=== PATIENT | female | born 1990 | race Caucasian/White ===

== ENCOUNTER 2024-09-10 07:41 | Outpatient (REF) | payer MEDICARE, MEDICAID, SELFPAY ==
[2024-09-10 08:10] LABS: MANUAL DIFF FLAG NO
[2024-09-10 08:36] LABS: Basophils Absolute Auto 0.1 X10*3/uL (0.0-0.2); Basophils Percent Auto 0.4 % (0-2); Eosinophils Absolute Auto 0.4 X10*3/uL (0.0-0.4); Eosinophils Percent Auto 3.3 % (0-4); Hematocrit 34.8 % (37.0-47.0); Hemoglobin 11.1 g/dl (12.0-16.0); Imm Gran Abs Auto 0.08 X10*3/uL (0.00-0.03); Imm Gran Pct Auto 0.7 % (0.0-0.4); Lymphocytes Absolute Auto 3.2 X10*3/uL (1.2-4.9); Lymphocytes Percent Auto 26.1 % (20-40); Mean Corpuscular HGB Conc 31.9 g/dl (31.0-35.0); Mean Corpuscular Hemoglobin 25.1 pg (27.0-33.0); Mean Corpuscular Volume 78.7 fL (80.0-98.0); Mean Platelet Volume 9.1 fL (9.4-12.3); Monocytes Absolute Auto 0.8 X10*3/uL (0.1-1.2); Monocytes Percent Auto 6.3 % (2-11); Neutrophils Absolute Auto 7.7 x10*3/uL (2.0-8.3); Neutrophils Percent Auto 63.2 % (45-73); Platelet Count 423 X10*3/uL (160-400); Red Blood Count 4.42 X10*6/uL (4.20-5.50); Red Cell Distribution Width 14.6 % (11.0-16.0); White Blood Count 12.2 X10*3/uL (4.8-10.8)
[2024-09-10 08:49] LABS: Estimated Average Glucose 117 mg/dL; Hemoglobin A1C 111.5725 umol/L; Hemoglobin A1c % 5.7 % (<6.0); Total Hemoglobin (HGBA1C) 2901.2537 umol/L
[2024-09-10 09:05] LABS: Anion Gap 10 (12-20); Blood Urea Nitrogen 11 mg/dL (9-16); Calcium 9.3 mg/dL (8.4-10.2); Carbon Dioxide 23 mmol/L (22-29); Chloride 109 mmol/L (96-108); Cholesterol 165 mg/dL (<200); Estimated Glomerular Filt Rate > 60; Glucose Random 94 mg/dL (60-115); HDL Cholesterol 47 mg/dL (>40); LDL Cholesterol Calculated 96 mg/dL (<100); Magnesium 1.9 mg/dL (1.6-2.6); Potassium 4.3 mmol/L (3.3-5.1); Sodium 138 mmol/L (135-145); Triglycerides 112 mg/dL (<150)
[2024-09-10 09:21] LABS: TSH reflex Free T4 1.12 uIU/mL (0.32-4.0); Vitamin D 25-OH Total 13.5 ng/mL (>30)
[2024-09-12 04:32] LABS: HBS Num1 0.38 mIU/mL (0-7.99); HBsAGNum1 0.42 S/CO (0.00-0.99); HIV AB/AG Nonreactive (Nonreactive); HIV Num 1 0.07 S/CO (0.00-0.99); Hepatitis B Core Antibody Nonreactive (Nonreactive); Hepatitis B Surface Antigen Negative (Negative); ~HepC Num1 0.99 S/CO (0.00-0.79); ~Hepatitis B Surface Antibody NONREACTIVE (Nonreactive)
[2024-09-12 05:14] LABS: ~HepC Num2 1.12; ~HepC Num3 1.03; ~Hepatitis C Antibody REACTIVE (Nonreactive)
[2024-09-15 13:13] LABS: HCV Log PCR <1.18 NOT DETECTED Log IU/mL (NOT DETECTED); HepC Viral Load <15 NOT DETECTED IU/mL (NOT DETECTED)
== END 2024-09-10 07:42 | disposition home or self-care (01) ==
LOC: HO.LAB 07:41
PROVIDERS: PCP Nurse Practitioner; Visit Provider Nurse Practitioner
DX: R20.2 Paresthesia of skin (principal); Z13.9 Encounter for screening, unspecified; E66.9 Obesity, unspecified; R79.89 Other specified abnormal findings of blood chemistry; Z11.59 Encounter for screening for other viral diseases
CPT/HCPCS: 36415; 80048; 80061; 82306; 83036; 83735; 84443; 85025; 86704; 86706; 86803; 87340; 87389; 87522

== ENCOUNTER 2024-09-28 18:03 | Outpatient (REF) | payer MEDICARE, MEDICAID, SELFPAY | END 2024-09-28 18:04 | disposition home or self-care (01) | LOC: HO.HHCLNP 18:03 | PROVIDERS: Visit Provider Nurse Practitioner | DX: L73.2 Hidradenitis suppurativa (principal) | CPT/HCPCS: 87070; 87077; 87147; 87186; 87205 ==

== ENCOUNTER 2025-02-15 16:03 | Outpatient (REF) | payer MEDICARE, MEDICAID, SELFPAY ==
--- OUTSIDE RECORDS SUMMARY | 2025-02-15 16:05 | XMS_ITS | Clinical Summary ---
Author Organization [facility] it Address [address] [place] [address] Care Team Providers Care Packing Line Operator Name Role Phone Unavailable Primary Care Provider Unavailabl e Social History Tobacco Use Types Packs/Day Years Used Date Smoking Tobacco: Never Assessed Sex and Gender Information Value Date Recorded Sex Assigned at Not on file Legal Sex Male 11:46 PM EST Gender Identity Not on file Sexual Orientation Not on file Plan of Treatment Health Maintenance Due Date Last Done Comments DTaP,Tdap,and Td Vaccines (1 - Tdap) 2009 Hepatitis B Vaccines (1 of 3 - 19+ 3-dose series) 2009 COVID-19 Vaccine (2023-2 5 season) 2024 Influenza Vaccine (Season Ended) 2025 HIB Vaccines Aged Out No longer eligi ble based on patient's age to complete this topic HPV Vaccines Aged Out No longer eligi ble based on patient's age to complete this topic Hepatitis A Vaccines Aged Out No long er eligible based on patient's age to complete this topic IPV Vaccines Aged Out No longer eligi ble based on patient's age to complete this topic MMR Vaccines Aged Out No longer eligi ble based on patient's age to complete this topic Meningococcal ACWY Vaccine Aged Out N o longer eligible based on patient's age to complete this topic Meningococcal B Vaccine Aged Out No l onger eligible based on patient's age to complete this topic Pneumococcal Vaccine: Pediat rics (0 to 5 Years) and At-Risk Patients (6 to 64 Years) Aged Out No longer eligible b ased on patient's age to complete this topic RSV Immunization Patients Un courtney 20 months Aged Out No longer eligible b ased on patient's age to complete this topic Varicella Vaccines Aged Out No longer eligible based on patient's age to complete this topic
== END 2025-02-15 16:04 | disposition home or self-care (01) ==
LOC: HO.HHCLNP 16:03
PROVIDERS: Visit Provider Nurse Practitioner
DX: T14.8XXA Other injury of unspecified body region, initial encounter (principal)
CPT/HCPCS: 36415; 87255

== ENCOUNTER 2025-08-10 19:10 | Emergency (ER) | payer MEDICARE, MEDICAID, SELFPAY ==
--- OUTSIDE RECORDS SUMMARY | 2025-08-04 23:59 | XMS_ITS | Continuity of Care Document ---
Author Organization [facility] As formerly [facility] Address [address] [place] [address] [address] [place] [address]- Care Team Providers Care Production Dispatcher Name Role Phone Not on Staff, PCP Primary Care Physician Unavail able [place] [facility] [place]/25 - 08/04/[address] [place] [address]- Attending Physician: Bar Seay MD Encounter Type: Pre Office Visit Allergies, Adverse Reactions, Alerts Substance Criticality Severity Reaction Reaction Severity Status Other Environmental Allergy cats- sneezing Active Immunizations Given and Recorded Vaccine Date Status Refusal Reason tetanus/diphtheria/pertussis, acel(Tdap) 07/11/24 Given influenza virus vaccine, inactivated 1 06/26/24 Gi surya influenza virus vaccine, inactivated 07/17/16 Give n 1Early/Late Reason: Early/Late Reason: Other : pt refused Medications docusate sodium 100 mg oral capsule 1 capsule, By Mouth, 2 times a day, PRN NEEDED FOR CONSTIPATION, # 60 capsule, 2 Refills, Maintenance, 06/02/25 12:33:00 PM EDT, [facility], 168, cm, 06/02/25 4:47:00 EDT, Height, 98.1, kg, 05/29/25 15:58:00 EDT, Dry Weight Start Date: 06/02/25 Status: Ordered Medication Dispense Status: Completed Quantity: 60.0 Unit: capsule Total Allowed Fills: 3 Fills Dispensed: 0 MiraLax oral powder for reconstitution = 17 Gm, By Mouth, Daily, # 238 Gm, 0 Refills, Maintenance, 06/25/25 5:53:00 PM EDT, REC Powder, [id number], Partial fill upon patient request if the prescription is for a schedule II opioid drug., 17 Gm By Mouth Daily, 165, cm, 06/25/25 13:36:00 EDT, Height, 96.3, kg, 06/25/25 13:36:00 EDT, Dry Weight Start Date: 06/25/25 Status: Ordered Medication Dispense Status: Completed Quantity: 238.0 Unit: g Total Allowed Fills: 1 Fills Dispensed: 0 Pulmicort Flexhaler 180 mcg 1 inhalation = 180 mcg, Inhalation, Daily, 0 Refills, Maintenance, 05/29/25 6:09:00 AM EDT, Partial fill upon patient request if the prescription is for a schedule II opioid drug. Start Date: 05/29/25 Status: Ordered Medication Dispense Status: Completed Total Allowed Fills: 1 Fills Dispensed: 0 Ventolin HFA 108 mcg/inh inhalation aerosol with adapter 0 Refills, Maintenance, 05/19/25 1:43:00 PM EDT, Partial fill upon patient request if the prescription is for a schedule II opioid drug. Start Date: 05/19/25 Status: Ordered Medication Dispense Status: Completed Total Allowed Fills: 1 Fills Dispensed: 0 Problem List Condition Confirmation Course Effective Dates Status Health St [facility] Informant Hidradenitis suppurativa Confirmed Active Obese class II Confirmed Active Patient Care team information Care Team Personnel Name: Jayashree Solo [facility] RN Member Role: Primary Care Nurse Name: Sherley Gomez RN [facility] RN Member Role: Primary Care Nurse Name: Saadia Johnston RN Position[facility] RN Member Role: Primary Care Nurse Name: Doris Emery RN Position: S RN Member Role: Primary Care Nurse Name: Chano Zheng RN Position: [facility] RN Member Role: Primary Care Nurse Name: Sherita Leo RN Position[facility] RN Member Role: Primary Care Nurse Name: Vivienne Cerna RN Position: S RN Member Role: Primary Care Nurse Name: Philip Herman RN Position: [facility] RN Member Role: Primary Care Nurse Name: Sina Medina RN Position: [facility] SN RN Member Role: Primary Care Nurse Name: Not on Staff, PCP Position: [facility] Physician (General Medicine) Member Role: PCP Name: Alexandre Kelsey NP Position: [facility] - Associate Professional Provider Member Role: Primary Care Nurse Name: Leyla Law RN Position[facility] RN Member Role: Primary Care Nurse Name: Mary Bryant Position: [facility] Outreach Member Role: Lifetime Consulting Physician Name: Christy Vicente RN Position[facility] RN Member Role: Primary Care Nurse Name: Nena Morejon RN Position[facility] RN Member Role: Primary Care Nurse Name: Day Ramirez RN Position: [facility] RN Member Role: Primary Care Nurse Name: Naomie Castle RN Position[facility] RN Member Role: Primary Care Nurse Name: Mike Álvarez RN Position[facility] RN Member Role: Primary Care Nurse Care Team Related Persons Name: RACHELLE MART Name: CECY ELIU Name: JUAN FRANCISCO TAN Name: LYNDA TAN Insurance Providers Guarantor name: MAKENZIE SIDHU Health Plan Information #: 1 Payer: MEDICARE B Payer Identifier: Member Number: [id number] Group Number: Subscriber Identifier: [id number] Relationship to Subscriber: self Coverage Type: NA Coverage Verification Date: Telecom: Address: Health Plan Information #: 2 [facility] [employer] Payer Identifier: Member Number: [id number] Group Number: Subscriber Identifier: [id number] Relationship to Subscriber: self Coverage Type: MEDICAID Coverage Verification Date: Telecom: Address:
--- OUTSIDE RECORDS SUMMARY | 2025-08-04 23:59 | XMS_ITS | Continuity of Care Document ---
Author Organization [facility] Address [address] [place] [address] [address] [place] [address]- Care Team Providers Care Furs Salesperson Name Role Phone Not on Staff, PCP Primary Care Physician Unavail able Encounter [facility] Date(s): 07/05/25 - 08/04/[address] [place] [address]- Encounter Type: Triage Allergies, Adverse Reactions, Alerts Substance Criticality Severity [...] 2 Refills, Maintenance, 06/02/25 12:33:00 PM EDT, [facility], 168, cm, 06/02/25 4:47:00 EDT, [...] Team Personnel Name: Jayashree Solo RN Position: [facility] RN Member Role: Primary Care Nurse Name: Sherley Gomez RN Position: [facility] RN Member Role: Primary Care Nurse Name: Saadia Johnston RN Position: [facility] RN Member Role: Primary Care Nurse Name: Doris Emery RN Position: [facility] RN Member Role: Primary Care Nurse Name: Chano Zheng RN Position: S RN Member Role: Primary Care Nurse Name: Sherita Leo RN Position: [facility] RN Member Role: Primary Care Nurse Name: Vivienne Cerna RN Position: S RN Member Role: Primary Care Nurse Name: Philip Herman RN Position: S RN Member Role: Primary Care Nurse Name: Sina Medina RN Position: [facility] RN Member Role: Primary Care Nurse Name: Not on Staff, PCP Position: [facility] Physician (General Medicine) Member Role: PCP Name: Alexandre Kelsey NP Position: [facility] - Associate Professional Provider Member Role: Primary Care Nurse Name: Leyla Law RN Position: [facility] RN Member Role: Primary Care Nurse Name: Mary Bryant Position: [facility] Outreach Member Role: Lifetime Consulting Physician Name: Christy Vicente RN Position: [facility] RN Member Role: Primary Care Nurse Name: Nena oMrejon RN Position: [facility] RN Member Role: Primary Care Nurse Name: Day Ramirez RN Position: [facility] RN Member Role: Primary Care Nurse Name: Naomie Castle RN Position: [facility] RN Member Role: Primary Care Nurse Name: Mike Álvarez RN Position: [facility] RN Member Role: Primary Care Nurse Care Team Related Persons Name: BARRON RACHELLE Name: ELIU SAM Name: JUAN FRANCISCO TAN Name: LYNDA TAN Insurance Providers Guarantor name: [facility] Plan Information #: 1 Payer: MEDICARE B Payer Identifier: AMBROSE Member Number: [id number] Group Number: Subscriber Identifier: AMBROSE Relationship to Subscriber: self Coverage Type: NA Coverage Verification Date: Telecom: NA Address: [facility] Information #: 2 P[facility]: [facility] [employer] Payer Identifier: AMBROSE Member Number: [id number] Group Number: AMBROSE Subscriber Identifier: AMBROSE Relationship to Subscriber: self Coverage Type: MEDICAID Coverage Verification Date: Telecom: Address:
--- NOTE | ~2025-08-10 | CT_ITS ---
CLINICAL HISTORY: stoma swelling and pain CT abdomen and pelvis with contrast Comparison: None provided Findings: No consolidation or effusion. Hepatic steatosis. The spleen, left and right kidney, pancreas and adrenal glands are within normal limits. Left upper quadrant colostomy. The appendix is within normal limits. Diverticulosis. No acute fracture. IMPRESSION: 1. Hepatic steatosis. 2. Left upper quadrant colostomy with proximal and distal stoma present. 3. Diverticulosis. 4. No acute intraabdominal or pelvic pathology. This document has been electronically signed by: Alexandro Newberry MD on 08/10/2025 23:33:27
--- NOTE | 2025-08-10 19:12 | ED_ITS ---
HPI - General Adult General Chief complaint: Abdominal Pain Stated complaint: General Medical Time Seen by Provider: 08/10/25 20:54 Source: patient and old records reviewed Mode of arrival: ambulatory Limitations: no limitations History of Present Illness ED Provider: JUAN DANIEL IQBAL narrative: 34-year-old patient who uses male pronouns, and prefers the name Tony. 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 He follows at [facility]. He comes in with a complaint of two days of stomal swelling and pain. He notes that the stoma is still pink, patent, productive. He still has brown stool and has gas in the colostomy bag. He has no nausea vomiting, fevers, pain anywhere else. He states he denies any trauma to this area, but notes it hurts when he sneezes. He has no prior abdominal surgery other than the colostomy. He is not on any medications for HS. MD complaint: Stomal pain Onset (ago): day(s) ( 2) Location: abdomen Radiation: non-radiation Severity: moderate Quality: aching Pain Consistency: intermittent Relieving factors: none Exacerbating factors: movement ( sneezing) Associated symptoms: denies other symptoms Treatments prior to arrival: none Related Data Allergies Allergy/AdvReac Type Severity Reaction Status Date / Time No Known Allergies Allergy Verified 08/10/25 19:15 Review of Systems 2 Review of Systems: Constitutional : No Weight loss, No Fever, No Chills ENT/Mouth : No sore throat, No Rhinorrhea Eyes: No Swelling, No Redness Cardiovascular : No Chest Pain, No SOB, No Edema Respiratory : No Cough, No Sputum, No Wheezing Gastrointestinal : no Nausea, no Vomiting, no Diarrhea, positive abdominal Pain, No Hematochezia, No Melena Genitourinary : No Dysuria, No Urinary Frequency, No Hematuria, No Urgency Musculoskeletal : No joint pain, No Myalgias, No Joint Swelling Skin : No Skin Lesions, No rash Neuro : No Weakness, No Numbness, No Dizziness, No Headache All other systems reviewed and are negative. [facility] Past Medical History Attestation statement: The following information was validated with the patient. Medical History (Updated 08/11/25 @ 00:14 by Jenna Cedeño DO) Suppurative hidradenitis Surgical History (Updated 08/10/25 @ 21:14 by Jenna Cedeño DO) History of colostomy Social History Social History (Updated 08/10/25 @ 21:14 by Jenna Cedeño DO) Patient Tobacco Use Status: Never used Tobacco Advance Directives: No Advance Directives Information Provided: No Physical Exam ED Vital Signs: Vital Signs - 24 hr 08/10/25 19:13 Temperature 98.2 F Pulse Rate 60 Respiratory Rate 16 Blood Pressure 128/63 Pulse Oximetry 98 Oxygen Delivery Method Room Air BMI result Body Mass Index 36.6 Appearance: Alert. Oriented X3. No acute distress. Eyes: Pupils equal, round and reactive to light. ENT: Pharynx normal. Neck: Normal inspection. Neck supple. CVS: Normal heart rate and rhythm. Pulses normal. Respiratory: No respiratory distress. Breath sounds normal. Abdomen: Soft and stoma is pink, patent, productive, the colostomy bag has gas and light brown stool in it. He does have tenderness to palpation along the left lateral border of the stoma and there is slight firmness, but no redness, no fluctuance, no crepitus. Skin: Skin warm and dry. Normal skin color. Normal skin turgor. Extremities: No lower extremity edema. No calf ttp Neuro: Oriented X 3. No motor deficit. No sensory deficit. CN2-12 intact Course Course Course Narrative: This is a rapid medical exam performed by João Lacey NP: Additional HPI, ROS, PE not included below will be deferred to primary provider. Patient is a 34y/o with colostomy presenting with complaint of swelling around stoma, numbness around umbilicus. Symptoms began around 2 weeks ago, saw ostomy nurse at [facility] on Thursday who thought it looked ok. Also complains of epigastric pain. Having gas and stool from ostomy. Plan: labs Reevaluation(s) Reevaluation #1: 11:52 PM 08/10/2025 (JUAN DANIEL HERNANDEZ): CT scan does not mention concern for parastomal hernia although I do not see any obstruction I am asking Radiology to re-evaluate imaging. Medications Administered Discontinued Medications Generic Name Dose Route Start Last Admin Trade Name Freq PRN Reason Stop Dose Admin Iohexol 85 ml 08/10/25 22:30 08/10/25 22:31 Iohexol 350 Mg/Ml 100 Ml Infus..Btl IV 08/10/25 22:31 85 ml ONCE ONE Administration Medical Decision Making Medical Decision Making [facility] Narrative: 34-year-old patient who uses male pronouns, and prefers the name Tony. He has a past medical history of hidradenitis suppurativa, rectal sparing colostomy due to site of HS now here with complaint of parastomal swelling and pain. He denies any recent trauma. He has a productive and normal-appearing stool in the colostomy bag. He has no fevers, nausea, vomiting. At this time given his history and new swelling at the site that is more a firmness to me with no protrusion of the stoma, I am going to obtain basic labs and CT scan for hernia or other cause of swelling. Differential Diagnosis Differential Diagnoses: The differential diagnosis associated with the presentation includes Stomal hernia, seroma, hem Admission/Observation Consideration of admission/observation: Escalation of care including admission/observation considered he has no signs of obstruction at this time I am going to refer him to his surgeon at [facility] Lab Data [facility] Lab Attestation statement: I reviewed the patient's lab results. 08/10/25 20:11 08/10/25 20:11 Labs: Lab Results 08/10/25 Range/Units 20:11 WBC 13.2 H (4.8-10.8) X10*3/uL RBC 4.22 (4.20-5.50) X10*6/uL Hgb 11.2 L (12.0-16.0) g/dl Hct 34.4 L (37.0-47.0) % MCV 81.5 (80.0-98.0) fL MCH 26.5 L (27.0-33.0) pg MCHC 32.6 (31.0-35.0) g/dl RDW 13.6 (11.0-16.0) % Plt Count 343 (160-400) X10*3/uL MPV 8.9 L (9.4-12.3) fL Immature Gran % (Auto) 0.4 (0.0-0.4) % Neut % (Auto) 65.2 (45-73) % Lymph % (Auto) 23.2 (20-40) % [place] % (Auto) 6.9 (2-11) % Eos % (Auto) 4.0 (0-4) % Baso % (Auto) 0.3 (0-2) % Lymph # (Auto) 3.1 (1.2-4.9) X10*3/uL [place] # (Auto) 0.9 (0.1-1.2) X10*3/uL Eos # (Auto) 0.5 H (0.0-0.4) X10*3/uL Baso # (Auto) 0.0 (0.0-0.2) X10*3/uL Abs Immat Gran (auto) 0.05 H (0.00-0.03) X10*3/uL Absolute Neuts (auto) 8.6 H (2.0-8.3) x10*3/uL Absolute Nucleated RBC 0.000 (0.0-0.012) X10*3/uL Nucleated RBC % (auto) 0.0 (0.0-0.2) /100WBC ESR 49 H (0-20) MM/HR Sodium 140 (135-145) mmol/L Potassium 3.8 (3.3-5.1) mmol/L Chloride 108 (96-108) mmol/L Carbon Dioxide 25 (22-29) mmol/L Anion Gap 11 L (12-20) BUN 13 (9-16) mg/dL Creatinine 0.97 (0.5-1.4) mg/dL Estim Creat Clear Calc 95.5 Estimated GFR > 60 Random Glucose 85 (60-115) mg/dL Calcium 9.2 (8.4-10.2) mg/dL Total Bilirubin 0.5 (0.0-1.0) mg/dL AST 22 (5-31) U/L ALT 24 (0-31) U/L Alkaline Phosphatase 94 (39-117) U/L C-Reactive Protein 1.59 H (< or = 0.50) mg/dL Total Protein 8.6 H (6.5-8.0) g/dL Albumin 4.2 (3.5-5.0) g/dL Beta HCG, Quant < 2 mIU/mL Independent Interpretation I performed an independent interpretation of an: CT Scan ( no acute surgical pathology) Radiology Impression Discussion of test interpretation with radiology: I have reviewed the radiologist's reading. External Record Review External record reviewed: Outpatient record Discharge Plan Discharge Clinical Impression: Abdominal pain Qualifiers: Abdominal location: left lower quadrant Qualified Code(s): R10.32 - Left lower quadrant pain Patient Disposition: Home, Self-Care Instructions: Abdominal Pain (ED) Additional Instructions: your labs are reassuring Your CT scan did not show any obstruction, incarceration, strangulation of the bowel Since your colostomy is working I would follow up with your surgeon today and discuss your findings Please return if your colostomy stops working, you have severe pain, vomiting, fever over 100.4, or any other concerns IMPRESSION: 1. Left lower quadrant colostomy with proximal and distal stoma without CT evidence of incarceration, strangulation or loculated fluid collection identified. 2. Hepatic steatosis. 3. Diverticulosis. 4. No acute intraabdominal or pelvic pathology. Stand Alone Forms: Work/School Release Print Language: Moldovan
[2025-08-10 19:13] VITALS: BP 128/63; PULSE 60; RESP 16; TEMP 36.8; O2SAT 98; BMI 36.6
[2025-08-10 20:15] LABS: MANUAL DIFF FLAG NO
[2025-08-10 20:23] LABS: Hematocrit 34.4 % (37.0-47.0); Hemoglobin 11.2 g/dl (12.0-16.0); Imm Gran Abs Auto 0.05 X10*3/uL (0.00-0.03); Imm Gran Pct Auto 0.4 % (0.0-0.4); Lymphocytes Absolute Auto 3.1 X10*3/uL (1.2-4.9); Mean Corpuscular HGB Conc 32.6 g/dl (31.0-35.0); Mean Corpuscular Hemoglobin 26.5 pg (27.0-33.0); Mean Corpuscular Volume 81.5 fL (80.0-98.0); NRBC Abs Auto 0.000 X10*3/uL (0.0-0.012); NRBC Pct Auto 0.0 /100WBC (0.0-0.2); Platelet Count 343 X10*3/uL (160-400); Red Blood Count 4.22 X10*6/uL (4.20-5.50); White Blood Count 13.2 X10*3/uL (4.8-10.8)
[2025-08-10 20:36] LABS: Alanine Aminotransferase 24 U/L (0-31); Albumin Level 4.2 g/dL (3.5-5.0); Alkaline Phosphatase 94 U/L (39-117); Anion Gap 11 (12-20); Aspartate Amino Transferase 22 U/L (5-31); Blood Urea Nitrogen 13 mg/dL (9-16); Calcium 9.2 mg/dL (8.4-10.2); Carbon Dioxide 25 mmol/L (22-29); Chloride 108 mmol/L (96-108); Creatinine Clr Calc Pharmacy 95.5; Estimated Glomerular Filt Rate > 60; Potassium 3.8 mmol/L (3.3-5.1); Sodium 140 mmol/L (135-145); Total Protein 8.6 g/dL (6.5-8.0)
--- OUTSIDE RECORDS SUMMARY | 2025-08-10 21:05 | XMS_ITS | Encounter Summary ---
Author Organization [employer] Address [address] [place] [address] Care Team Providers Care Shipping Assistant Name Role Phone Maida Scott NP Primary Care Provider [phone] Reason for Visit * Reason Onset Date Comments Hospital Follow-up 06/06/2025 Encounter Details Date Type Department Care Team ([facility] Contact Info) Description 06/06/2025 Telephone [facility] [address] [place] [address] Maida Scott NP [address] [place] [address] Hospital Follow-up Social History Tobacco Use Types Packs/Day Years Used Date Smoking Tobacco: Former Cigarettes Passive Smoke Exposure: Past Smokeless Tobacco: Former Alcohol Use Standard Drinks/Week Comments Never 0 (1 standard drink = 0.6 oz pur e alcohol) Depression Answer Date Recorded Patient Health Questionnaire-9 Score 4 08/26/2024 Patient Health Questionnaire-9 Score 4 08/26/2024 Last PHQ-9: Questionnaire Data Not on file 1 10/27/2023 Housing Stability Answer Date Recorded What is your housing situation today? I have housing today, but I am worried about losing housing in the future 06/06/[address] you li ve. Do you have problems with any of the following? Mold 06/06/2025 Food Insecurity Answer Date Recorded Within the past 12 months, y ou worried that your food would run out before you got money to buy more: Never True 08/17/2024 Within the past 12 months,th e food you bought just didn't last and you didn't have enough money to get more: Never True 12/2023 Transportation Answer Date Recorded In the past 12 months, has l ack of transportation kept you from medical appts, meetings, work or from getting things needed for daily living? No 08/17/2024 Utilities Answer Date Recorded In the past 12 months, has t he electric, gas, oil or water company threatened to shut off services in your home? Yes 06/06/2025 Depression Answer Date Recorded Patient Health Questionnaire-2 Score 1 08/26/2024 Internet Access Answer Date Recorded Internet Access Q1 No 06/06/2025 Internet Access Q2 I cannot afford it 06/06/2025 Comments Unknown Sex and Gender Information Value Date Recorded Sex Assigned at Female 04/27/2024 10:55 AM EDT Legal Sex Female 10:54 AM EDT Gender Identity Transgender Male 08/26/2024 10:4 1 AM EST Sexual Orientation Straight 08/26/2024 10 :41 AM EST documented as of this encounter Miscellaneous Notes * Telephone Encounter - Lizzie Tariq - 06/06/2025 11:16 AM EDT Tc from pt retuning call from encounter 06/05 Contact pt at [phone] documented in this encounter Plan of Treatment Upcoming Encounters Date Type Department Care Team (Late st Contact Info) Description 08/21/2025 1:30 PM EST Office Visit [facility] [address] [place] [address] Vicki, Myla [address] [place] [address] documented as of this encounter Visit Diagnoses Not on filedocumented in this encounter Additional Health Concerns Assessment Noted Time PHQ-9 Depression Total Score: 4 08/26/20 10:41 AM EST documented as of this encounter Care Teams Shipping Assistant Relationship Specialty Start Date End Date Maida Scott NP [address] [place] [address] PCP - General Family Medicine 08/26/24 documented as of this encounter
--- OUTSIDE RECORDS SUMMARY | 2025-08-10 21:05 | XMS_ITS | Encounter Summary ---
Author Organization [employer] Address [address] [place] [address] Care Team Providers Care Head Chef Name Role Phone Maida Scott NP Primary Care Provider [phone] Reason for Visit * Reason Onset Date Comments Nurse Triage 09/27/2024 Encounter Details Date Type Department Care Team ([facility] st Contact Info) Description 09/27/2024 Telephone [facility] MEDICINE [address] [place], [place] [phone] Maida Scott NP [address] [place] [address] Nurse Triage Social History Tobacco Use Types Packs/Day Years Used Date Smoking Tobacco: Never Smokeless Tobacco: Never Alcohol Use Standard Drinks/Week Comments Never 0 (1 standard drink = 0.6 oz pur e alcohol) Depression Answer Date Recorded Patient Health Questionnaire-9 Score 4 08/26/2024 Patient Health Questionnaire-9 Score 4 08/26/2024 Last PHQ-9: Questionnaire Data Not on file 1 10/27/2023 Housing Stability Answer Date Recorded What is your housing situation today? I have [facility] 08/17/[address] you li ve. Do you have problems with any of the following? Mold;Pests such as bugs, ants, or mice 08/17/2024 Food Insecurity Answer Date Recorded Within the [...] to shut off services in your home? No 08/17/2024 Depression Answer Date Recorded Patient Health Questionnaire-2 Score 1 08/26/2024 Internet Access Answer Date Recorded Internet Access Q1 Yes 08/17/2024 Internet Access Q2 Not on file 08/17/2024 Comments Unknown Sex and Gender Information Value Date Recorded Sex Assigned at Female 04/27/2024 10:55 AM EDT Legal Sex Female 10:54 AM EDT Gender Identity Transgender Male 08/26/2024 10:4 1 AM EST Sexual Orientation Straight 08/26/2024 10 :41 AM EST documented as of this encounter Miscellaneous Notes * Telephone Encounter - Maida Scott NP - 09/27/2024 1:31 PM EST Thank you * Telephone Encounter - Sidra Pinzon RN - 09/27/2024 12:18 PM EST Called pt. He states the he has a break out of Hidradenitis located all over body mostly armpits and groin area. Areas are red and draining pus. Pus is thick and yellowish green. Pt states I am verysensitive and scared about PCP looking at my private area . I don't want her to be grossed out by what she see's and I'm very sensitive about the way people say things . No fever. Pt. Requesting antibiotic to be called in but I stated that pt. Needs to come in so that PCP can initially see what's going on so that she will have an idea in the future of condition. I gave pt. Appt. For 09/28/24 with PCP and stated Your PCP is very kind and compassionate and You will need to show initial wounds so that maybe in the future you can just call in and discuss with PCP or do a televisit to get your antibiotics in the future. Pt. Agrees with plan hesitantly. Will send thi to PCP as a FYI Protocol Used: Boil (Skin Abscess) (Adult) Protocol-Based Disposition: Go to Office or Video Visit Now-appt. With PCP 09/28/24 at 930am Positive Triage Questions: * Severe pain (e.g., excruciating) * Boil > 1/2 inch across (> 12 mm; larger than a marble) and center is soft or pus colored * All higher-acuity triage questions were negative Care Advice Discussed: * Reassurance and Education - Boil * Treatment for a Boil - Moist Heat * Treatment for a Boil - Antibiotic Ointment * Draining Pus Is Contagious * Preventing Spread to Yourself and Others * Pain Medicines * Telephone Encounter - Venkatesh Lombardi - 09/27/2024 11:55 AM EST Symptom: Skin Infection - Caller Reports Outcome: Schedule an urgent appointment (within 4 hours) or talk to a nurse or provider soon Reason: Fast-spreading redness The caller accepted this outcome. Contact pt at [phone] documented in this encounter Plan of Treatment Upcoming Encounters Date Type Department Care Team (Late st Contact Info) Description 08/21/2025 1:30 PM EST Office Visit [facility] ADULT DENTAL [address] [place] [address] Vicki, Myla [address] [place] [address] documented as of this encounter Visit Diagnoses Not on filedocumented in this encounter Additional Health Concerns Assessment Noted Time PHQ-9 Depression Total Score: 4 08/26/20 24 10:41 AM EST documented as of this encounter Care Teams Head Chef Relationship Specialty Start Date End Date Maida Scott NP [address] [place] [address] PCP - General Family Medicine 08/26/24 documented as of this encounter
--- OUTSIDE RECORDS SUMMARY | 2025-08-10 21:05 | XMS_ITS | Encounter Summary ---
Author Organization [employer] Address [address] [place] [address] Care Team Providers Care Fruit Buying Grader Name Role Phone Maida Scott NP Primary Care Provider Reason for Visit * Reason Onset Date Comments Nurse Triage 02/15/2025 Encounter Details Date Type Department Care Team ([facility] Contact Info) Description 02/15/2025 Telephone [facility] MEDICINE [address] [place], [place] [phone] Maida Scott NP [address] [place] [address] Nurse Triage Social History Tobacco Use Types [...] encounter Miscellaneous Notes * Telephone Encounter - Isabel Apple RN - 02/15/2025 9:19 AM EDT Triage call with Pt reporting bubbles developing on outer labia area that were previously on leftbuttocks. Pt denies itchiness but, area is painful to touch. Pt reports these bubbles pop with clear drainage. Pt reports this started about a month ago. Pt is concerned that this is an infectiousdisease . ASK apt today with PCP at 1115am , Pt agrees with disposition and home care is advised, keeping area clean, if drainage occurs clean with warm soap and water, rinse and apply antibiotic ointment then try to keep area drainage contained. Hand washing is important. Pt agrees with home care . Insurance is verified as active prior to booking. Protocol Used: Rash or Redness - Localized (Adult) Protocol-Based Disposition: See in Office or Video Visit Today Video visit not offered Positive Triage Question: * Patient wants to be seen * All higher-acuity triage questions were negative Care Advice Discussed: * Reassurance and Education - Mild Localized Rash * Wash the Area * Don't Scratch * Contagiousness * Reasons To Call Back - Rash spreads or becomes worse - Rash lasts longer than 1 week - You become worse * Telephone Encounter - Vanita Meng - 02/15/2025 8:53 AM EDT Symptom: Infectious Disease Exposure Outcome: Schedule a same-day appointment or talk to a nurse or provider today Reason: Caller denied all higher acuity questions The caller accepted this outcome. [phone] documented in this encounter Plan of Treatment Upcoming Encounters Date Type Department Care Team (Late st Contact Info) Description 08/21/2025 1:30 PM EST Office Visit [facility] ADULT DENTAL [address] [place] [address] Vicki, Myla [address] [place] [address] documented as of this encounter Visit Diagnoses Not on filedocumented in this encounter Additional Health Concerns Assessment Noted Time PHQ-9 Depression Total Score: 4 08/26/20 24 10:41 AM EST documented as of this encounter Care Teams Fruit Buying Grader Relationship Specialty Start Date End Date Maida Scott NP [address] [place] [address] PCP - General Family Medicine 08/26/24 documented as of this encounter
--- OUTSIDE RECORDS SUMMARY | 2025-08-10 21:05 | XMS_ITS | Encounter Summary ---
Author Organization [employer] Address [address] [place] [address] Care Team Providers Care Spinning Frame Cleaner Name Role Phone Tyler Maida NGUYEN Primary Care Provider [phone] Reason for Visit * Reason Comments Med Change Request Encounter Details Date Type Department Care Team ([facility] st Contact Info) Description 03/21/2025 Refill [facility] [address] [place], [place] [phone] Aniya Lincoln NP [address] [place] [address] Moderate persistent asthma with acute exacerbation Social History Tobacco Use Types Packs/Day Years [...] AM EST documented as of this encounter Plan of Treatment Upcoming Encounters Date Type Department Care Team (Late st Contact Info) Description 08/21/2025 1:30 PM EST Office Visit [facility] ADULT DENTAL [address] [place] [address] Myla Cohen [address] [place] [address] documented as of this encounter Visit Diagnoses Diagnosis Moderate persistent asthma with acute exacerbation documented in this encounter Additional Health Concerns Assessment Noted Time PHQ-9 Depression Total Score: 4 08/26/20 10:41 AM EST documented as of this encounter Care Teams Spinning Frame Cleaner Relationship Specialty Start Date End Date Maida Scott NP [address] [place] [address] PCP - General Family Medicine 08/26/24 documented as of this encounter
--- OUTSIDE RECORDS SUMMARY | 2025-08-10 21:05 | XMS_ITS | Clinical Summary ---
Author Organization [facility] Address [address] [place] [phone] Phone Care Team Providers Care Elderly Sitter Name Role Phone Moises Wiseman MD Unavailable [phone] Unknown, Unknown MD Primary Care Provider Unavai lable Allergies No known active allergies Medications doxycycline hyclate (DORYX) 100 MG tablet Take 1 tablet by mouth 2 (two) times a day. One bid. stop if . be careful in sun. 5 Active ibuprofen (ADVIL,MOTRIN) 800 MG tablet Take 1 tablet by mouth 3 (three) times a day. PRN. 5 Active adalimumab (HUMIRA) 40 mg/0.8 mL PnKt Inject 0.8 mL (40 mg total) under the skin every 7 days. 4 pen 2 6 Active chlorproMAZINE (THORAZINE) 100 MG tablet Take 1 tablet by mouth nightly. Active traZODone (DESYREL) 50 MG tablet Take 3 tablets by mouth nightly as needed. DOSE INCREASE Active Medication-Valente e Text HydrOXYzine HCl 50 MG/ML Tablet, Si-2 tablets Orally every 6 hrs PRN Active QUEtiapine (SEROQUEL) 25 MG tablet Take 1-2 tablets by mouth as needed. Active citalopram (CELEXA) 20 MG tablet Take 1 tablet by mouth daily. Active busPIRone (BUSPAR) 15 MG tablet Take 1 tablet by mouth 2 (two) times a day. 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 Not on colton e 01/09/2023 Are you concerned about learning? Not on file 01/09/2023 No 01/09/2023 No 01/09/2023 Digital Access Answer Date Recorded No 02/09/2023 No 02/09/2023 No 02/09/2023 Reliable internet access at home? Not on file 02/09/2023 Device with a working camera? Not on file Comments Unknown Sex and Gender Information Value Date Recorded Sex Assigned at Not on file Legal Sex Female 8:52 AM EST Gender Identity Not on file Sexual Orientation Not on file Last Filed Vital Signs Vital Sign Reading Time Taken Comments Blood Pressure 102/64 02/02/2017 2:18 AM EDT Pulse 66 02/02/2017 2:18 AM EDT Temperature 36.9 C (98.4 F) 02/02/2017 2:18 AM EDT Respiratory Rate - - Oxygen Saturation - - Inhaled Oxygen Concentration - - Weight 94.6 kg (208 lb 9.6 oz) 02/02/2017 2:18 A M EDT Height 167 cm (5' 5.75 ) 02/02/2017 2:18 AM EDT Body Mass Index 33.93 02/02/2017 2:18 AM EDT Plan of Treatment Health Maintenance Due Date Last Done Comments Adult Td,Tdap Booster 1990 DEPRESSION SCREENING 2002 HIV ONE-TIME SCREENING (18-6 5 YEARS) 2008 PNEUMOCOCCAL VACCINES (0-49 years) (1 of 2 - PCV) 2009 SMOKING STATUS SCREENING (On ce After 26 Yrs) 2016 PAP SMEAR 10/08/2019 10/08/2016 COVID-19 VACCINE (3 - Modern a risk series) 12/05/2020 2020, 10/10/2020 INFLUENZA VACCINE (#1) 2025 HEPATITIS C SCREENING Completed 08/02/2015 HEPATITIS A VACCINES Aged Out No long er eligible based on patient's age to complete this topic HIB VACCINES Aged Out No longer eligi ble based on patient's age to complete this topic MENINGOCOCCAL VACCINES (ACWY) Aged Out No longer eligible based on patient's age to complete this topic MENINGOCOCCAL VACCINES (B) Aged Out N o longer eligible based on patient's age to complete this topic Medical Devices Not on file Procedures Procedure Name Priority Date/Time Associated Diagnosis Comments HEPATITIS C VIRAL LOAD, PCR Routine 08/02/2015 10:20 AM EST from Last 3 Months or Most Recently Relevant to Health Maintenance Results * HCV viral load (PCR) (08/02/2015 10:20 AM EST) HCV RNA PCR see comment IU/mL [facility] Comment: Not Detected (NOTE)Assay Range: 15-100,000,000 IU/ml In rare instances, there might be a 1.0 - 1.5 log increase measured viral load observed in individuals with genotype 3a and 4. Please refer any questions to the [facility] at extension [phone]. This is a quantitative assay utilizing real-time PCR technology. Results of this test may be clinically useful in monitoring a patient's clinical course or response to antiviral therapy but should not be used to make the diagnosis of HCV infection. A test result of less than the lower limit of quantification (LLoQ)(<15 IU/mL) should be interpreted as HCV RNA not quantifiable but does not exclude the diagnosis of HCV infection. 08/02/2015 10:2 0 AM EST 08/02/2015 3:38 PM EST Comment:BLOOD us Maricarmen Tapia MD LAB BLOOD BKR ORDERABL ES Final Result [facility] [address] [place] [address] from Last 3 Months or Most Recently Relevant to Health Maintenance Insurance MEDICARE REPLACEMENT MEDICARE REPLACEMENT MEDICARE REPLACEMENT CARE MEDICARE REPLACEMENT CARE MEDICARE REPLACEMENT MEDICARE REPLACEMENT CARE MEDICARE REPLACEMENT MEDICARE REPLACEMENT Care Teams Elderly Sitter Relationship Specialty Start Date End Date Unknown, Unknown, [address] [place] [address], [address] [place] [address] PCP - General 05/01/20 Moises Wiseman MD [address] [place] [address], [address] [place] [address] Historical LMR Provider 07/04/17 Additional Source Comments The information contained in this document represents components of the legal health record. It is not the complete legal health record.[facility]
--- OUTSIDE RECORDS SUMMARY | 2025-08-10 21:05 | XMS_ITS | Clinical Summary ---
Author Organization [employer] Address [address] [facility] [address] [place] [address] Care Team Providers Care Cloth Tearer Name Role Phone Maida Scott WENDY Primary Care Provider [phone] Allergies Active Allergy Reactions Criticality Noted Date Comments Other 06/22/2025 Other Reaction(s): cats- sneezing Medications minocycline 100 MG capsuleIndicatio ns:HS Take 100 mg by mouth Once per day. Active benzoyl peroxide (BENZAC AC WASH) 10 % external washIndications: Hidradenitis suppurativa APPLY TO AFFECTED AREA TWICE A DAY 227 g 3 5 Active cholecalciferol (Vitamin D-3) 25 MCG (1000 UT) capsuleIndicatio ns:Hypovitaminos is D TAKE 1 CAPSULE (25 MCG) BY MOUTH ONCE PER DAY. 90 capsule 5 Active Additional Information Patient not taking.Reported on 06/19/2025 albuterol 108 (90 Base) MCG/ACT inhalerIndicatio ns:Moderate persistent asthma with acute exacerbation Inhale 2 puffs every 6 (six) hours if needed for wheezing. 18 g 11 5 Active budesonide-formo terol (Breyna) 80-4.5 MCG/ACT inhalerIndicatio ns:Moderate persistent asthma with acute exacerbation Inhale 2 puffs if needed each day (wheeze). 1 each 5 Active docusate sodium (Colace) 100 MG capsule Take 1 capsule by mouth if needed in the morning and at bedtime for constipation. 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 [facility] Khoi DUONG called and she was gracious enough to double book him to be seen on 10/04 -Start minocycline 100 mg twice daily -Rx'd ibuprofen 600 mg for pain management -Wound cultures obtained -Will call with results Encounters Date Type Department Care Team Description 06/23/2025 2:00 PM EDT Office Visit [address] [address] Maida Scott NP Hospital discharge follow-up (Primary Dx) 06/23/2025 Travel 06/22/[address] [address] Vicente Sosa [place] CHART PREP 06/08/[address] [address] Maida Scott NP housing letter 06/06/2025 Patient Outreach [address] [address] Maida Scott NP Care Coordination (CHW outreach for SDOH housing search-referral completed ) 06/06/2025 Patient Outreach [address] [address] Maida Scott NP Transition Of Care (Tcm) (HDF scheduled and SDOH screening positive and Tobacco screening negative) 06/06/[address] [address] Maida Scott NP Hospital Follow-up 06/06/2025 Telephone [facility] MEDICINE [address] [address] Maida Scott NP Change PCP 06/05/2025 Patient Outreach [facility] [address] [place] [address] Maida Scott NP Transition Of Care (Tcm) (HDF unscheduled. ) 05/29/2025 Patient Outreach [facility] MEDICINE [address] [place] [address] Maida Scott NP Transition Of Care (Tcm) (HDF unscheduled) from Last 3 Months Immunizations Immunization Administration Dates Next Due Hep B, adult 10/07/2024 Influenza, IIV3, injectable 06/26/2024, 6 Influenza, seasonal, injectable, preservative fr ee 06/26/2024 Tdap 07/11/2024 Family History Medical History Relation Name Comments Diabetes Father Diabetes Mother Diabetes Sister Relation Name Status Comments Father Mother Sister Social History Tobacco Use Types Packs/Day Years Used Date Smoking Tobacco: Former Cigarettes Passive Smoke Exposure: Past Smokeless Tobacco: Former Tobacco Cessation:Counseling Given: Not Answered Alcohol Use Standard Drinks/Week Comments Never 0 [...] I cannot afford it 06/06/2025 Comments Unknown Intention Date Recorded No desire to become (finding) 0 01/25/2025 Sex and Gender Information Value Date Recorded Sex Assigned at Female 04/27/2024 10:55 AM EDT Legal Sex Female 10:54 AM EDT Gender Identity Transgender Male 08/26/2024 10:4 1 AM EST Sexual Orientation Straight 08/26/2024 10 :41 AM EST Last Filed Vital Signs Vital Sign Reading Time Taken Comments Blood Pressure 120/86 06/23/2025 2:00 PM EDT Pulse 86 06/23/2025 2:00 PM EDT Temperature 37.1 C (98.8 F) 06/23/2025 2:00 PM EDT Respiratory Rate 21 06/23/2025 2:00 PM EDT Oxygen Saturation 97% 06/23/2025 2:00 PM EDT Inhaled Oxygen Concentration - - Weight 101 kg (222 lb 3.2 oz) 06/23/2025 2:00 PM EDT Height 165.1 cm (5' 5 ) 06/23/2025 2:00 PM EDT Body Mass Index 36.98 06/23/2025 2:00 PM EDT Plan of Treatment Upcoming Encounters Date Type Department Care Team (Late st Contact Info) Description 08/21/2025 1:30 PM EST Office Visit [facility] ADULT DENTAL [address] [place] [address] Vicki, Myla [address] [place] [address] Health Maintenance Due Date Last Done Comments HPV Vaccines (1 - 3-dose series) 2005 Pneumococcal Vaccine: Pediatrics (0 to 5 Years) and At-Risk Patients (6 to 49) Years (1 of 2 - PCV) 2009 Pap Smear 2011 Cervical Cancer Screening 2020 HPV/Cotest 2020 Hepatitis B Vaccines (2 of 3 - 19+ 3-dose series) 11/04/2024 10/07/2024 COVID-19 Vaccine (3 - 2024-2 6 season) 2025 2020, 10/10/2020 Influenza Vaccine (#1) 2025 , 06/26/2024, 07/17/2016 Alcohol/Substance Use Screening 08/26/2025 08/26/2024 Depression Screening 08/26/2025 08/26/2024, 08/26/2024 Diabetes: Hemoglobin A1C 09/10/2025 09/10/2024 Disability Screening 01/25/2026 01/25/2025 Family Planning (PISQ) 01/25/2026 01/25/2025 Tobacco Screening 02/15/2026 02/15/2025 SDOH Screening 06/06/2026 06/06/2025 Lipid Panel 09/10/2029 09/10/2024 DTaP/Tdap/Td Vaccines (2 - T d or Tdap) 07/11/2034 07/11/2024 Zoster Vaccines (1 of 2) 2040 RSV Patients and Patients Aged 60 years or older (1 - 1-dose 75+ series) 2065 HIV Screening Completed 09/10/2024 Hepatitis C Screening Completed 09/10/2024 , 09/10/2024 HIB Vaccines Aged Out No longer eligi [...] patient's age to complete this topic Meningococcal Vaccine Aged Out No remy paulette eligible based on patient's age to complete this topic RSV under 20 months Aged Out No longe r eligible based on patient's age to complete this topic Rotavirus Vaccines Aged Out No longer eligible based on patient's age to complete this topic Procedures Procedure Name Priority Date/Time Associated Diagnosis Comments HEPATITIS C AB W/REFL TO HCV RNA, QN, PCR Routine 09/10/2024 8:07 AM EST Encounter for health-related screening HIV 1/2 ANTIGEN/ANTIBODY, FOURTH GENERATION W/RFL Routine 09/10/2024 8:07 AM EST Encounter for health-related screening HEMOGLOBIN A1C Routine 09/10/2024 8:07 AM EST Obesity (BMI 30-39.9) LIPID PANEL, STANDARD Routine 09/10/2024 8:07 AM EST Obesity (BMI 30-39.9) from Last 3 Months or Most Recently Relevant to Health Maintenance Results * Hepatitis C Antibody with Reflex to HCV, RNA, Quantitative, Real-Time PCR (09/10/2024 8:07 AM EST) Hepatitis C Antibody REACTIVE Nonreactive [facility] Comment:Presumptive evidence of antibodies to HCV. Blood Venous blood specimen / Unknown 09/10/2024 8:07 AM EST 09/10/2024 8:08 AM EST Maida Scott NP LAB BLOOD ORDERABLES Final Resu lt [facility] [address] [place] [phone] * HIV-1/2 Antigen and Antibodies, Fourth Generation, with Reflexes (09/10/2024 8:07 AM EST) HIV AB/AG Nonreactive Nonreactive [facility] Comment:HIV-1 p24 Ag and/or HIV-1/HIV-2 Ab not detected.A test result that is nonreactive does not exclude thepossibility of exposure to or infection with HIV-1 and/orHIV-2. Nonreactive results in this assay for individualswith prior exposure to HIV-1 and/or HIV-2 may be due toantigen and antibody levels that are below the limit ofdetection of this assay.The Geno HIV Ag/Ab Combo assay result andsupplemental assay results should be interpreted inconjunction with the patient's clinical presentation,history and other laboratory results. If the results areinconsistent with clinical evidence, additional testing issuggested to confirm the result. Blood Venous blood specimen / Unknown 09/10/2024 8:07 AM EST 09/10/2024 8:08 AM EST Maida Chavez WOUND CARE RN LAB BLOOD ORDERABLES Final Resu lt Performing Organization Address [facility] Co de Phone Number [facility] [address] [place] [address] [phone] * Hemoglobin A1c (09/10/2024 8:07 AM EST) Hemoglobin A1c 5.7 <6.0 % [facility] Comment:Hemoglobin A1C Refer ence Range Adults: 4.8 - 6.0 % Non diabetic: < 6.0 % Goal: < 7.0 %Additional Action Suggested: > 8.0 %Note: Hemoglobin A1c results are invalid for patients with abnormal amounts of HbF. Blood transfusions may impact the HbA1c concentration in the patient sample. Estimated Average Glucose 117 mg/dL [facility] Comment:eAG = Estimated ave rage glucose which is %A1C expressed asaverage glucose, using the formula of the [id number]-[id number] Glucose study (ADAG), Diabetes Care, Vol.31,#8,Apr. 2007 Blood Venous blood specimen / Unknown 09/10/2024 8:07 AM EST 09/10/2024 8:08 AM EST Maida [facility] WOUND CARE RN LAB BLOOD ORDERABLES Final Resu lt Performing Organization Address [facility] Co de Phone Number [facility] [address] [place] [address] [phone] * Lipid Panel, Standard (09/10/2024 8:07 AM EST) Triglycerides 112 <150 mg/dL [facility] Comment:Desirable Triglyceri de: less than 150 mg/dLBorderline High Triglyceride 150-199 mg/dLHigh Triglyceride: 200-499 mg/dLVery High Triglyceride: greater than or equal to 5OO mg/dL Cholesterol 165 <200 mg/dL [facility] Comment:Desirable Cholestero l: less than 200 mg/dLBorderline High Cholesterol: 200-239 mg/dLHigh Cholesterol: greater than 239 mg/dL LDL Cholesterol Calculated 96 <100 mg/dL [facility] Comment:Desirable LDL: less than 100 mg/dLNear Optimal/Above Optimal LDL: 110- 129 mg/dLBorderline High LDL: 130-159 mg/dLHigh LDL: 160-189 mg/dLVery High LDL: greater than or equal to 190 mg/dL HDL Cholesterol 47 >40 mg/dL [facility] Comment:Desirable HDL: great er than 40 mg/dL Note: This HDL assay may give artificially low results in patients with liver disease. Blood Venous blood specimen / Unknown 09/10/2024 8:07 AM EST 09/10/2024 8:08 AM EST Maida Scott NP LAB BLOOD ORDERABLES Final Resu lt [facility] [address] [place] [phone] from Last 3 Months or Most Recently Relevant to Health Maintenance Insurance [place] [address] [place] [id number] [facility] STAND ADULT Care Teams Cloth Tearer Relationship Specialty Start Date End Date Maida Scott NP [address] [place] [address] PCP - General Family Medicine 08/26/24
[2025-08-10 21:09] LABS: Erythrocyte Sedimentation Rate 49 MM/HR (0-20)
[2025-08-10] MEDS: iohexoL 350 MG/ML 100 ML INFUS..BTL 85 ML IV (22:31)
[2025-08-11 00:20] VITALS: BP 113/71; PULSE 74; RESP 16; TEMP 36.6; O2SAT 96
[2025-08-11 00:21] VITALS: BP 113/71; PULSE 74; RESP 16; TEMP 36.6; O2SAT 96
== END 2025-08-11 00:26 | disposition home or self-care (01) ==
PROVIDERS: Registered Nurse Emergency; Emergency Provider Emergency Medicine
DX: R10.32 Left lower quadrant pain (principal); Z93.3 Colostomy status
CPT/HCPCS: 36415; 74177; 80053; 84702; 85025; 85652; 86140; 99283; 99285; Q9967

== ENCOUNTER → 2025-08-10 21:06 | Outpatient (BNV) | payer MEDICARE, MEDICAID, SELFPAY | PROVIDERS: Emergency Provider Emergency Medicine; Visit Provider Radiology Diagnostic Radiology | DX: K57.30 Diverticulosis of large intestine without perforation or abscess without bleeding (principal); K76.0 Fatty (change of) liver, not elsewhere classified | CPT/HCPCS: 74177 ==

== ENCOUNTER 2025-09-07 12:27 | Emergency (ER) | payer MEDICARE, MEDICAID, SELFPAY ==
--- OUTSIDE RECORDS SUMMARY | 2025-09-01 23:59 | XMS_ITS | Continuity of Care Document ---
Author Organization [facility] Address [address] [place] [address] [address] [place] [address]- Care Team Providers Care Convolute Tube Winder Name Role Phone Not on Staff, PCP Primary Care Physician Unavail able Encounter [facility] Date(s): 08/02/25 - 09/01/[address] [place] [address]- Encounter Type: Triage Allergies, Adverse Reactions, Alerts [...] 2 Refills, Maintenance, 06/02/25 12:33:00 PM EDT, [facility], 168, cm, 06/02/25 4:47:00 EDT, [...] Effective Dates Status Health St atus Informant Colostomy status Confirmed Active Hidradenitis suppurativa Confirmed Active Obese class II Confirmed Active Patient Care team information Care Team Personnel Name: Jayashree Solo RN Position: [facility] RN Member Role: Primary Care Nurse Name: Sherley Gomez RN Position: [facility] RN Member Role: Primary Care Nurse Name: Saadia Johnston RN Position: [facility] RN Member Role: Primary Care Nurse Name: Doris Emery RN Position: [facility] RN Member Role: Primary Care Nurse Name: Chano Zheng RN Position: [facility] RN Member Role: Primary Care Nurse Name: Sherita Leo RN Position: [facility] RN Member Role: Primary Care Nurse Name: Vivienne Cerna RN Position: [facility] ED RN W/OE and Tasks Member Role: Primary Care Nurse Name: Philip Herman RN Position: [facility] RN Member Role: Primary Care Nurse Name: Sina Medina RN Position: [facility] RN Member Role: Primary Care Nurse Name: Not on Staff, PCP Position: [facility] Physician (General Medicine) Member Role: PCP Name: Alexandre Kelsey NP Position: [facility] - Associate Professional Provider Member Role: Primary Care Nurse Name: Leyla Law RN Position: [facility] RN Member Role: Primary Care Nurse Name: Mary Bryant Position: [facility] Outreach Member Role: Lifetime Consulting Physician Name: Christy Vicente RN Position: [facility] RN Member Role: Primary Care Nurse Name: Nena Morejon RN Position: [facility] RN Member Role: Primary Care Nurse Name: Day Ramirez RN Position: [facility] RN Member Role: Primary Care Nurse Name: Naomie Castle RN Position: [facility] RN Member Role: Primary Care Nurse Name: Mike Álvarez RN Position: [facility] RN Member Role: Primary Care Nurse Care Team Related Persons Name: LOYDRACHELLE SEPULVEDA Name: ELIU SAM Name: JUAN FRANCISCO TAN Name: LYNDA TAN Insurance Providers Guarantor name: MAKENZIE SIDHU Health Plan Information #: 1 Payer: MEDICARE A INPT 26 Payer Identifier: Member Number: [id number] Group Number: Subscriber Identifier: Relationship to Subscriber: self Coverage Type: MEDICARE Coverage Verification Date: Telecom: Address: Health Plan Information #: 2 Payer: [employer] Payer Identifier: Member Number: [id number] Group Number: Subscriber Identifier: Relationship to Subscriber: self Coverage Type: MEDICAID Coverage Verification Date: Telecom: Address:
--- OUTSIDE RECORDS SUMMARY | 2025-09-06 23:59 | XMS_ITS | Continuity of Care Document ---
Author Organization [facility] Address [address] [place] [address] [address] [place] [address]- Care Team Providers Care Chief Marketing Officer Name Role Phone Not on Staff, PCP Primary Care Physician Unavail able Encounter [facility] Date(s): 08/07/25 - 09/06/[address] [place] [address]- Attending Physician: [id number] Admitting Physician: Admtr, Ar8 Referring Physician: Admtr, Ar8 Encounter Type: Triage Allergies, Adverse Reactions, Alerts [...] 2 Refills, Maintenance, 06/02/25 12:33:00 PM EDT, [facility], 168, cm, 06/02/25 4:47:00 EDT, Height, 98.1, kg, 05/29/25 15:58:00 EDT, Dry Weight Start Date: 06/02/25 Status: Ordered Medication Dispense Status: Completed Quantity: 60.0 Unit: capsule Total Allowed Fills: 3 Fills Dispensed: 0 MiraLax oral powder for reconstitution = 17 Gm, By Mouth, Daily, # 238 Gm, 0 Refills, Maintenance, 06/25/25 5:53:00 PM EDT, REC Powder, [id number], Partial fill upon patient request if [...] Care Nurse Name: Chano Zheng RN Position: [facility] RN Member Role: Primary Care Nurse Name: Sherita Leo RN Position: [facility] RN Member Role: Primary Care Nurse Name: Vivienne Cerna RN Position: [facility] ED RN W/OE and Tasks Member Role: Primary Care Nurse Name: Philip Herman RN Position: [facility] RN Member Role: Primary Care Nurse Name: Sina Medina RN Position: [facility] SN RN Member Role: Primary Care Nurse Name: Not on Staff, PCP Position: [facility] Physician (General Medicine) Member Role: PCP Name: Alexandre Kelsey NP Position: [facility] - Associate Professional Provider Member Role: Primary Care Nurse Address: [address] [place] [address] Telecom: Name: Leyla Law RN Position: [facility] RN Member Role: Primary Care Nurse Name: Mary Bryant Position: [facility] Outreach Member Role: Lifetime Consulting Physician Name: Christy Vicente RN Position: [facility] RN Member Role: Primary Care Nurse Name: Nena Morejon RN Position: [facility] RN [...] Team Related Persons Name: RACHELLE MART Name: ELIU SAM Name: JUAN FRANCISCO TAN Name: LYNDA TAN Insurance Providers Guarantor name: MAKENZIE SIDHU Health Plan Information #: 1 Payer: MEDICARE A INPT 26 Payer Identifier: Member Number: [id number] Group Number: Subscriber Identifier: Relationship to Subscriber: self Coverage Type: MEDICARE Coverage Verification Date: Telecom: Address: Health Plan Information #: 2 Payer: [employer] Payer Identifier: Member Number: [id number] Group Number: Subscriber Identifier: Relationship to Subscriber: self Coverage Type: MEDICAID Coverage Verification Date: Telecom: Address:
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
[2025-09-07 12:34] VITALS: BP 124/58; PULSE 62; RESP 18; TEMP 36.6; O2SAT 99; BMI 35.6
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
--- OUTSIDE RECORDS SUMMARY | 2025-09-07 13:23 | XMS_ITS | Encounter Summary ---
Author Organization [employer] Address [address] [place] [address] Care Team Providers Care Industrial Maintenance Manager Name Role Phone Maida Scott NP Primary Care Provider [phone] Reason for Visit * Reason Onset Date Comments Nurse Triage 02/15/2025 Encounter Details Date Type Department Care Team ([facility] st Contact Info) Description 02/15/2025 Telephone [facility] [address] [place] [address] Maida Scott NP [address] [place] [address] Nurse Triage Social History Tobacco Use Types [...] is your housing situation today? I have zenhoward hughes 08/17/[address] you [...] become worse * Telephone Encounter - Vanita Hood Meng - 02/15/2025 8:53 AM EDT Symptom: Infectious Disease Exposure Outcome: Schedule a same-day appointment or talk to a nurse or provider today Reason: Caller denied all higher acuity questions The caller accepted this outcome. [phone] documented in this encounter Plan of Treatment Not on file documented as of this encounter Visit Diagnoses Not on filedocumented in this encounter Additional Health Concerns Assessment Noted Time PHQ-9 Depression Total Score: 4 08/26/20 24 10:41 AM EST documented as of this encounter Care Teams Industrial Maintenance Manager Relationship Specialty Start Date End Date Maida Scott NP [address] [place] [address] PCP - General Family Medicine 08/26/24 documented as of this encounter
--- OUTSIDE RECORDS SUMMARY | 2025-09-07 13:23 | XMS_ITS | Encounter Summary ---
Author Organization [employer] Address [address] [place] [address] Care Team Providers Care Recycling Or Rubbish Collector Name Role Phone Maida Scott NP Primary Care Provider [phone] Reason for Visit * Reason Comments Med Change Request Encounter Details Date Type Department Care Team ([facility] Contact Info) Description 03/21/2025 Refill [facility] [address] [place] [address] Aniya Lincoln NP [address] [place] [address] Moderate persistent asthma with acute exacerbation Social [...] as of this encounter Plan of Treatment Not on file documented as of this encounter Visit Diagnoses Diagnosis Moderate persistent asthma with acute exacerbation documented in this encounter Additional Health Concerns Assessment Noted Time PHQ-9 Depression Total Score: 4 08/26/20 10:41 AM EST documented as of this encounter Care Teams Recycling Or Rubbish Collector Relationship Specialty Start Date End Date aMida Scott NP [address] [place] [address] PCP - General Family Medicine 08/26/24 documented as of this encounter
--- OUTSIDE RECORDS SUMMARY | 2025-09-07 13:23 | XMS_ITS | Encounter Summary ---
Author Organization [employer] Address [address] [place] [address] Care Team Providers Care In Home Sales Representative Name Role Phone Maida Scott NP Primary Care Provider [phone] Reason for Visit * Reason Onset Date Comments chartprep 09/05/2025 Encounter Details Date Type Department Care Team ([facility] Contact Info) Description 09/05/2025 Telephone [facility] [address] [place] [address] Maida Scott NP [address] [place] [address] chartprep Social History Tobacco Use Types Packs/Day Years Used Date Smoking Tobacco: Former Cigarettes Passive Smoke Exposure: Past Smokeless Tobacco: Former Alcohol Use Standard Drinks/Week Comments Never 0 (1 standard drink = 0.6 oz pur e alcohol) Depression Answer Date Recorded Patient Health Questionnaire-9 Score 27 09/04/2025 Patient Health Questionnaire-9 Score 27 09/04/2025 Last PHQ-9: Questionnaire Data Not on file 1 11/05/2024 Housing Stability Answer Date Recorded What is [...] Answer Date Recorded Patient Health Questionnaire-2 Score 6 09/04/2025 Internet Access Answer Date Recorded Internet Access [...] encounter Miscellaneous Notes * Telephone Encounter - Tatiana Stafford MA - 09/05/2025 9:47 AM EST ..Chart Prep Labs: done Images: not applicable Vaccines due: Covid Due, Hep B Due, PCV20 Due, Flu Due, and HPV Referrals: Not Applicable Screenings: Colonoscopy Overdue care gaps: A1C and Glucose documented in this encounter Plan of Treatment Not on file documented as of this encounter Visit Diagnoses Not on filedocumented in this encounter Additional Health Concerns Assessment Noted Time PHQ-9 Depression Total Score: 27 025 11:18 AM EST documented as of this encounter Care Teams In Home Sales Representative Relationship Specialty Start Date End Date Maida Scott NP [address] [place] [address] PCP - General Family Medicine 08/26/24 documented as of this encounter
--- OUTSIDE RECORDS SUMMARY | 2025-09-07 13:23 | XMS_ITS | Encounter Summary ---
Author Organization [employer] Address [address] [place] [address] Care Team Providers Care Learning Technologist Name Role Phone Maida Scott NP Primary Care Provider Reason for Visit * Reason Onset Date Comments Nurse Triage 09/27/2024 Encounter Details Date Type Department Care Team ([facility] st Contact Info) Description 09/27/2024 Telephone [facility] [address] [place] [address] Maida Scott NP [address] [place] [address] Nurse Triage Social History Tobacco Use Types [...] caller accepted this outcome. Contact pt at [phone] documented in this encounter Plan of Treatment Not on file documented as of this encounter Visit Diagnoses Not on filedocumented in this encounter Additional Health Concerns Assessment Noted Time PHQ-9 Depression Total Score: 4 08/26/20 24 10:41 AM EST documented as of this encounter Care Teams Learning Technologist Relationship Specialty Start Date End Date Maida Scott NP [address] [place] [phone] PCP - General Family Medicine 08/26/24 documented as of this encounter
--- OUTSIDE RECORDS SUMMARY | 2025-09-07 13:23 | XMS_ITS | Clinical Summary ---
Author Organization [facility] Address [address] [place] [address] Phone Care Team Providers Care Pipeline Superintendent Division Name Role Phone Moises Wiseman MD Unavailable [phone] Unknown, Unknown MD Primary Care Provider [...] EST) HCV RNA PCR see comment IU/mL [facility] Comment: Not Detected (NOTE)Assay Range: 15-100,000,000 IU/ml In rare instances, there might be a 1.0 - 1.5 log increase measured viral load observed in individuals with genotype 3a and 4. Please refer any questions to the Molecular Diagnostics Lab at extension [phone]. This is a quantitative assay utilizing real-time [...] LAB BLOOD BKR ORDERABL ES Final Result [facility] [address] [place] [address] from Last 3 Months or Most Recently Relevant to Health Maintenance Insurance MEDICARE REPLACEMENT MEDICARE REPLACEMENT MEDICARE REPLACEMENT CARE MEDICARE REPLACEMENT CARE MEDICARE REPLACEMENT MEDICARE REPLACEMENT CARE MEDICARE REPLACEMENT MEDICARE REPLACEMENT Care Teams Pipeline Superintendent Division Relationship Specialty Start Date End Date Unknown, Unknown, [address] [place] [address], [address] [place] [address] PCP - General 05/01/20 Moises Wiseman MD [address] [place] [address], [address] [place] [address] Historical LMR Provider 07/04/17 Additional Source Comments The information contained in this document represents components of the legal health record. It is not the complete legal health record.[facility]
--- OUTSIDE RECORDS SUMMARY | 2025-09-07 13:23 | XMS_ITS | Clinical Summary ---
Author Organization [employer] Address [address] [place] [address] Care Team Providers Care Hogshead Cooper Name Role Phone Maida Scott NP Primary Care Provider [phone] Allergies Active Allergy Reactions Criticality Noted Date Comments Other 06/22/2025 Other Reaction(s): cats- sneezing Medications * This document contains information received from the source organization and may not represent a complete record from that organization. minocycline 100 MG capsuleIndicatio ns:HS Take 100 [...] morning and at bedtime for constipation. Active hydrOXYzine HCl (Atarax) 25 MG tabletIndication s:Acute anxiety Take 1-2 tablets by oral route as needed up to four times daily for anxiety 90 tablet 09/01/2025 4:21 PM EST Active Active Problems Problem Noted Date Diagnosed Date JERRICA (generalized anxiety disorder) 09/01/2025 MDD (major depressive disord er), single episode, severe , no psychosis ([facility]) 09/01/2025 Acute cough 03/20/2025 Moderate persistent asthma with acute exacerbati on 03/20/2025 Assessment & Plan (03/20/2025 10:46 AM EDT): Pt with diffuse wheezes throughout, non smoker, Hx of pediatric asthma, treat with both symbicort, (q6 hours prn for 2 days then twice daily for the month) and albuterol for wheeze Return to clinic for failure to improve or worsening symptoms Class 2 obesity 06/29/2024 History of hidradenitis suppurativa 04/19/2018 Keloid scar 04/19/2018 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 [facility] Khoi DUONG called and she was gracious enough to double book him to be seen on 10/04 -Start minocycline 100 mg twice daily -Rx'd ibuprofen 600 mg for pain management -Wound cultures obtained -Will call with results Resolved Problems Problem Noted Date Diagnosed Date Resolved Date Depression with anxiety 04/19/201808/15 Encounters * This document contains information received from the source organization and may not represent a complete record from that organization. Date Type Department Care Team Description 09/06/2025 Telephone [facility] [address] [place] [address] Maida Scott NP provider out (Called pt to r/s appointment provider out . No answer unable to leave voicemail . If pt calls r/s follow up appointment with pcp. ) 09/05/[address] [address] Maida Scott NP chartprep 09/01/2025 3:00 PM EST Office Visit [facility] [address] [place] [address] Matt, Nataly, [employer] Acute anxiety (Primary Dx) 09/01/2025 Travel 09/01/[address] [address] Becky Francisco, RN Nurse Triage 08/29/[address] [address] Maida Scott NP Nurse Triage 06/23/2025 2:00 PM EDT Office Visit [address] [address] Maida Scott NP Hospital discharge follow-up (Primary Dx); Skin irritation 06/23/2025 Travel 06/22/[address] [address] Vicente Sosa [place] CHART PREP 06/08/[address] [address] Maida Scott NP housing letter from Last 3 Months Immunizations Immunization Administration [...] Sign Reading Time Taken Comments Blood Pressure 143/80 09/01/2025 3:37 PM EST Pulse 69 09/01/2025 3:37 PM EST Temperature 36.8 C (98.2 F) 09/01/2025 3:37 PM EST Respiratory Rate 18 09/01/2025 3:37 PM EST Oxygen Saturation 98% 09/01/2025 3:37 PM EST Inhaled Oxygen Concentration - - Weight 101 kg (223 lb) 09/01/2025 3:37 PM EST Height 165.1 cm (5' 5 ) 06/23/2025 2:00 PM EDT Body Mass Index 37.11 06/23/2025 2:00 PM EDT Plan of Treatment Health Maintenance Due Date Last Done Comments Dental Oral Exam 1990 Dental Prophylaxis 1990 Dental X-Ray: Bitewings 1990 Dental X-Ray: Full Mouth 1990 Alcohol/Substance Use Screening 2002 HPV Vaccines (1 - 3-dose series) 2005 Pneumococcal Vaccine: Pediatrics (0 to 5 Years) and At-Risk Patients (6 to 49) Years (1 of 2 - PCV) 2009 Pap Smear 2011 Cervical Cancer Screening 2020 HPV/Cotest 2020 Hepatitis B Vaccines (2 of 3 - 19+ 3-dose series) 11/04/2024 10/07/2024 COVID-19 Vaccine ( - 2024-2 6 season) 2025 2020, 10/10/2020 Influenza Vaccine (#1) 2025 , 06/26/2024, 07/17/2016 Diabetes: Hemoglobin A1C 09/10/2025 09/10/2024 Disability Screening 01/25/2026 01/25/2025 Family Planning (PISQ) 01/25/2026 01/25/2025 Depression Monitoring 03/05/2026 09/04/2025 , 09/04/2025 SDOH Screening 06/06/2026 06/06/2025 Tobacco Screening 09/04/2026 09/04/2025 DTaP/Tdap/Td Vaccines (2 - T d or [...] AM EST) Hepatitis C Antibody REACTIVE Nonreactive [facility] Comment:Presumptive evidence of antibodies to HCV. Blood Venous blood specimen / Unknown 09/10/2024 8:07 AM EST 09/10/2024 8:08 AM EST Maida Scott NP LAB BLOOD ORDERABLES Final Resu lt [facility] [address] [place] [phone] * HIV-1/2 Antigen and Antibodies, Fourth Generation, with Reflexes (09/10/2024 8:07 AM EST) HIV AB/AG Nonreactive Nonreactive [facility] Comment:HIV-1 p24 Ag and/or HIV-1/HIV-2 Ab not detected.A test result that is nonreactive does not exclude thepossibility of exposure to or infection with HIV-1 and/orHIV-2. Nonreactive results in this assay for individualswith prior exposure to HIV-1 and/or HIV-2 may be due toantigen and antibody levels that are below the limit ofdetection of this assay.The Data [employer] HIV Ag/Ab Combo assay result andsupplemental assay results should be interpreted inconjunction with the patient's clinical presentation,history and other laboratory results. If the results areinconsistent with clinical evidence, additional testing issuggested to confirm the result. Blood Venous blood specimen / Unknown 09/10/2024 8:07 AM EST 09/10/2024 8:08 AM EST [facility] LAB BLOOD ORDERABLES Final Resu lt Performing Organization Address [facility] Co de Phone Number [facility] [address] [place] [phone] * Hemoglobin A1c (09/10/2024 8:07 AM EST) Hemoglobin A1c 5.7 <6.0 % [facility] Comment:Hemoglobin A1C Refer ence Range Adults: 4.8 - 6.0 % Non diabetic: < 6.0 % Goal: < 7.0 %Additional Action Suggested: > 8.0 %Note: Hemoglobin A1c results are invalid for patients with abnormal amounts of HbF. Blood transfusions may impact the HbA1c concentration in the patient sample. Estimated Average Glucose 117 mg/dL [facility] Comment:eAG = Estimated ave rage glucose which is %A1C expressed asaverage glucose, using the formula of the N2Z-NbdpnohRcmekni Glucose study (ADAG), Diabetes Care, Vol.31,#8,Apr. 2007 Blood Venous blood specimen / Unknown 09/10/2024 8:07 AM EST 09/10/2024 8:08 AM EST [facility] ORDERABLES Final Resu lt Performing Organization Address [facility] Co de Phone Number [facility] [address] [place] [address] [phone] from Last 3 Months or Most Recently Relevant to Health Maintenance Insurance MEDICARE [facility] STANDARD DENTAL-[facility] MEDICAID STAND ADULT Care Teams Hogshead Cooper Relationship Specialty Start Date End Date Maida Scott NP [address] [place] [address] PCP - General Family Medicine 08/26/24
--- OUTSIDE RECORDS SUMMARY | 2025-09-07 13:23 | XMS_ITS | Clinical Summary ---
Author Organization [facility] it Address [address] [place] [address] Care Team Providers Care Children'S Attendant Name Role Phone Unavailable Primary Care Provider [...] of 3 - 19+ 3-dose series) 2009 HPV Vaccines (1 - 3-dose SCD M series) 2017 Depression Screening 09/14/2024 COVID-19 Vaccine (1 - 2024-2 6 season) 2025 Influenza Vaccine (#1) 2025 RSV Immunization Adult Patie nts (1 - 1-dose 75+ series) 2065 HIB Vaccines Aged Out No longer eligi [...] 5 Years) and At-Risk Patients (6 to 49 Years) Aged Out No longer eligible b ased on patient's age to complete this topic RSV Immunization Patients Un courtney 20 months Aged Out No longer eligible b ased on patient's age to complete this topic Varicella Vaccines Aged Out No longer eligible based on patient's age to complete this topic
--- OUTSIDE RECORDS SUMMARY | 2025-09-07 13:23 | XMS_ITS | Encounter Summary ---
Author Organization [employer] Address [address] [place] [address] Care Team Providers Care Custom Decorating Consultant Name Role Phone Maida Scott NP Primary Care Provider [phone] Reason for Visit * Reason Onset Date Comments provider out 09/06/2025 Called pt to r/s appointment provider out . No answer unable to leave voicemail . If pt calls r/s follow up appointment with pcp. Encounter Details Date Type Department Care Team ([facility] st Contact Info) Description 09/06/2025 Telephone [facility] [address] [place] [address] Maida Scott NP [address] [place] [address] provider out (Called pt to r/s appointment provider out . No answer unable to leave voicemail . If pt calls r/s follow up appointment with pcp. ) Social History Tobacco Use Types Packs/Day Years [...] encounter Miscellaneous Notes * Telephone Encounter - Mariajose Manuel - 09/06/2025 8:37 AM EST Called pt to r/s appointment provider out . No answer unable to leave voicemail . If pt calls r/s follow up appointment with pcp. documented in this encounter Plan of Treatment Not on file documented as of this encounter Visit Diagnoses Not on filedocumented in this encounter Additional Health Concerns Assessment Noted Time PHQ-9 Depression Total Score: 27 025 11:18 AM EST documented as of this encounter Care Teams Custom Decorating Consultant Relationship Specialty Start Date End Date Maida Scott NP [address] [place] [address] PCP - General Family Medicine 08/26/24 documented as of this encounter
[2025-09-07 15:08] VITALS: BP 124/58; PULSE 62; RESP 18; TEMP 36.6; O2SAT 99
== END 2025-09-07 15:08 | disposition home or self-care (01) ==
PROVIDERS: Physician Assistant Medical; Emergency Provider Emergency Medicine; PCP Nurse Practitioner
DX: S09.90XA Unspecified injury of head, initial encounter (principal); R42 Dizziness and giddiness; R51.9 Headache, unspecified; R10.23 Pelvic and perineal pain bilateral; Y04.2XXA Assault by strike against or bumped into by another person, initial encounter; Y93.9 Activity, unspecified; Y92.9 Unspecified place or not applicable; Y99.8 Other external cause status
CPT/HCPCS: 36415; 70450; 72125; 84702; 99282; 99284

== ENCOUNTER 2025-09-08 17:30 | Emergency (ER) | payer MEDICARE, MEDICAID, SELFPAY ==
--- OUTSIDE RECORDS SUMMARY | 2025-09-07 23:59 | XMS_ITS | Continuity of Care Document ---
Author Organization [facility] [place] Address [address] [place] [address]- Care Team Providers Care Announcer Name Role Phone Not on Staff, PCP Primary Care Physician Unavail able Encounter [facility] Date(s): 08/08/25 - 09/07/25 [facility] [place] [address] [place], [place] [address] Attending Physician: Admtr, [id number] Admitting Physician: Admtr, Ar8 Referring Physician: Admtr, [...] 2 Refills, Maintenance, 06/02/25 12:33:00 PM EDT, [facility], 168, cm, 06/02/25 4:47:00 EDT, Height, 98.1, kg, 05/29/25 15:58:00 EDT, Dry Weight Start Date: 06/02/25 Status: Ordered Medication Dispense Status: Completed Quantity: 60.0 Unit: capsule Total Allowed Fills: 3 Fills Dispensed: 0 MiraLax oral powder for reconstitution = 17 Gm, By Mouth, Daily, # 238 Gm, 0 Refills, Maintenance, 06/25/25 5:53:00 PM EDT, REC Powder, [facility] #[id number], Partial fill upon patient request if [...] List Condition Confirmation Course Effective Dates Status [facility] atus Informant Colostomy status Confirmed Active Hidradenitis [...] Care Nurse Name: Sina Medina RN Position: [facility] SN RN Member Role: Primary Care Nurse Name: Not on Staff, PCP Position: [facility] Physician (General Medicine) Member Role: PCP Name: Alexandre Kelsey NP Position: [facility] - Associate Professional Provider Member Role: Primary Care Nurse Address: [address] [place] [address] Telecom: Name: Leyla Law RN Position[facility] [...] A INPT 26 Payer Identifier: Member Number: [id number] Group Number: Subscriber Identifier: Relationship to Subscriber: self Coverage Type: MEDICARE Coverage Verification Date: Telecom: Address: Health Plan Information #: 2 Payer: [employer] Payer Identifier: Member Number: [id number] Group Number: Subscriber Identifier: Relationship to Subscriber: self Coverage Type: MEDICAID Coverage Verification Date: Telecom: Address:
--- NOTE | ~2025-09-08 | CT_ITS ---
CLINICAL HISTORY: ams, vomiting CT abdomen and pelvis with contrast Comparison: CT/REG/SR - CT HEAD/BRAIN WO IV CON - 09/08/25 21:[address] - CT ABDOMEN PELVIS W IV CON - 09/08/25 21:38 EST Findings: No consolidation or effusion. Unremarkable gallbladder and solid organs. No urolithiasis. No bowel obstruction, pneumoperitoneum, or pneumatosis. Left lower quadrant colostomy is present. Fat containing parastomal hernia noted and unchanged since prior. Pelvic contents unremarkable. Normal appendix. Few scattered sigmoid diverticula are present without diverticulitis. The bones are intact. IMPRESSION: No acute findings. This document has been electronically signed by: Daniel Smith MD, PHD on 09/08/2025 23:28:17
--- NOTE | ~2025-09-08 | CT_ITS ---
CLINICAL HISTORY: ams CT head without contrast Comparison: CT/SR - CT HEAD/BRAIN WO IV CON - 09/07/25 13:42 EST Findings: No intra-axial mass, midline shift, hydrocephalus, or acute hemorrhage. No significant atrophy-like change or white matter disease. The visualized paranasal sinuses and mastoid air cells are normal. The orbits are within normal limits. No skull fracture. IMPRESSION: 1. No acute intracranial findings. This document has been electronically signed by: Daniel Smith MD, PHD on 09/08/2025 23:26:08
--- NOTE | 2025-09-08 17:39 | ECG_ITS ---
Test Reason : AMS Blood Pressure : */* mmHG Vent. Rate : 45 BPM Atrial Rate : 45 BPM P-R Int : 166 ms QRS Dur : 98 ms QT Int : 444 ms P-R-T Axes : 26 46 41 degrees QTcB Int : 384 ms Sinus bradycardia with marked sinus arrhythmia Otherwise normal ECG When compared with ECG of 10-Oct-2011 07:57, Premature ventricular complexes are no longer Present Referred By: Mirella Kelley Electronically Signed By: BEAN GALINDO MD
--- NOTE | 2025-09-08 17:39 | ED_ITS ---
HPI - General Adult General Chief complaint: Psychiatric Symptoms Stated complaint: sect 12, SI, combative Time Seen by Provider: 09/08/25 17:36 Source: patient Mode of arrival: ambulatory Limitations: altered mental status (Status post 400mg IM ketamine) History of Present Illness ED Provider: Dr. Kelley HPI narrative: 34-year-old female to male transgender reportedly prefers name Tony. Per chart review presenting to ER today after agitation requiring sedation on scene. Respond there was 1st called to the patient's house apparently patient became into a verbal argument with mom. This then escalated on scene. She[employer] gave patient 400 mg IM ketamine due to his agitation and violence. Patient arrived to a sedated unable to provide any meaningful history. The patient does have an ostomy bag in place. Related Data Home Medications ?Medication ?Instructions ?Recorded ?Confirmed hydroxyzine HCl 25 mg tablet 25 - 50 mg PO TID PRN Anx iety 09/11/25 09/11/25 Previous Rx's ?Medication ?Instructions ?Recorded cephalexin 500 mg capsule 500 mg PO QID 7 days #28 cap s 09/11/25 sulfamethoxazole 800 1 tab PO BID #12 tabs mg-trimethoprim 160 mg tablet (Bactrim DS) Allergies Allergy/AdvReac Type Severity Reaction Status Date / Time No Known Allergies Allergy Verified 09/08/25 17:49 Review of Systems 2 Review of Systems: Pertinent review of systems as mentioned in HPI. All other system otherwise negative. [facility] Past Medical History [facility] Narrative: Limited medical history due to patient's altered mentation currently. Medical History Suppurative hidradenitis Surgical History History of colostomy Social History Social History Unable to assess alcohol history related to: Unable to respond Patient Tobacco Use Status: Never used Tobacco Smoked in Last 30 Days: No Use of substances other than those prescribed or required for medical reasons: Unable to respond Advance Directives: No Advance Directives Information Provided: Yes Physical Exam ED Exam Exam: General: Sedated Head: Normacephalic, atraumatic ENT: oral mucosa moist, neck supple, no tracheal deviation Cardiovascular: regular rate, regular rhythm, no murmurs, rubbing, gallops, bilateral mastectomy scar appreciated on exam Respiratory: CTAB, no wheeze, rales, rhonchi Gastrointestinal: Soft, non distended, non tender, non guarding, ostomy bag appreciate on exam Neurological: Sedated at this time Skin: Warm and dry Vital Signs: Vital Signs - 24 hr 09/10/25 21:55 09/11/25 01:23 09/11/25 13:12 Temperature 97 F 98 F 97.2 F Pulse Rate 60 78 66 Respiratory Rate 18 16 16 Blood Pressure 122/75 106/67 110/71 Pulse Oximetry 99 98 100 Oxygen Delivery Method Room Air Room Air Room Air BMI result Body Mass Index 33.2 Course Course Course Narrative: 5:04 AM 09/09/2025 (Dr. Nancy Landis, D.O.) patient becoming extremely agitated, ripping the suction off the wall and becoming verbally and physically aggressive towards staff. Required physical and chemical restraints. Ordered ketamine. We will continue to monitor closely. Reevaluation(s) Reevaluation #1: Time: 17:44 Date: 09/10/25 Provider: Lenny Bruno MD Patient in physician observation for psychiatric evaluation.? No acute events reported overnight. No current complaints. VS stable.? Patient is in bed search status. Today the patient complained of some redness of the right eye. I went to examine the patient. There is some very faint conjunctival injection and possibly some minimal swelling of the eyelids of the right eye. Pupils are round, equal, and reactive to light, extraocular movements are intact. Otherwise the patient looks well. There was no proptosis. I do not think this is a case of preseptal cellulitis. The patient will be started on erythromycin ophthalmic ointment for a possible mild conjunctivitis. Reevaluation #2: 11:20 PM 09/10/2025 (Dr. Philip Casillas): The nurse brought to my attention that the patient is complaining of left lower buttock swelling and induration he feels like he has a abscess there he has a history of severe chronic hidradenitis including right buttock complex drainage in the past that he says he is scheduled to get reconstructive surgery of the buttock. He denies fever or chills or drainage. Ultrasound was performed see details below but he has a large collection. We had a shared decision-making discussion and he agreed to incision and drainage. He has no constitutional symptoms or fever. We will start him on antibiotics. Seven days of Keflex and Bactrim has been ordered and prescribed for the patient. Incision and drainage will be performed in the ED. Culture will be taken. EMERGENCY ULTRASOUND INTERPRETATION- Limited skin and soft tissue [This study was ordered, performed, and interpreted by myself. The study reveals: Impression: Large right inferior buttock abscess about 3 by 4 cm collection [Indication: ?Redness and swelling Skin: ?Buttock abscess Performed by: ?Philip Casillas MD ?Images were stored ] Reevaluation #3: Time: 06:03 Date: 09/11/25 Provider: Jenna Cedeño DO Patient in physician observation for psychiatric evaluation.? No acute events reported overnight. No current complaints. VS stable.? pending IPBS. Will continue to monitor. Additional Reevaluation(s): 4:11 PM 09/11/2025 (JUAN DANIEL HERNANDEZ): Physician observation ended at this time he has been discharged to respite I prescribed the rest of his antibiotics Medications Administered Generic Name Dose Route Start Last Admin Trade Name Freq PRN Reason Stop Dose Admin Cephalexin HCl 500 mg 09/11/25 09:00 09/11/25 09:05 Cephalexin 500 Mg Capsule PO 09/18/25 08:59 500 mg TID YULIANA Administration Erythromycin 1 cm 09/10/25 10:45 09/11/25 05:02 Erythromycin Base 0.5% Oph Oin 1 Gm Tube EYE-RIGHT 1 cm Q6H YULIANA Administration Trimethoprim/Sulfamethoxazole 1 tab 09/11/25 09:00 09/11/25 11:31 Sulfamethox/Trimeth 800/160 Tablet PO 09/18/25 08:59 1 tab BID YULIANA Administration Discontinued Medications Generic Name Dose Route Start Last Admin Trade Name Freq PRN Reason Stop Dose Admin Acetaminophen 975 mg 09/09/25 21:26 09/09/25 21:30 Acetaminophen 325 Mg Tablet PO 09/09/25 21:27 975 mg ONCE ONE Administration Cephalexin HCl 500 mg 09/10/25 23:27 09/10/25 23:58 Cephalexin 500 Mg Capsule PO 09/10/25 23:28 500 mg ONCE ONE Administration Diphenhydramine HCl 25 mg 09/08/25 22:04 09/08/25 22:25 Diphenhydramine Hcl 50 Mg/Ml Vial IVPUSH 09/08/25 22:05 25 mg ONCE ONE Administration Haloperidol Lactate 5 mg 09/08/25 19:18 09/08/25 19:21 Haloperidol Lactate 5 Mg/Ml Vial IM 09/08/25 19:19 5 mg ONCE ONE Administration Lactated Ringer's 1,000 mls @ 999 mls/hr 09/08/25 17:45 09/08/25 20:40 Lr IV 09/08/25 18:45 Infused .Q1H1M YULIANA Infusion Potassium Chloride 10 meq in 100 mls @ 100 mls/hr 09/08/25 18:30 09/08/25 21:34 Potassium Chloride/H20 IV 09/08/25 20:29 Infused Q1H YULIANA Infusion Lactated Ringer's 1,000 mls @ 999 mls/hr 09/08/25 19:45 09/08/25 21:15 Lr IV 09/08/25 20:45 Infused .Q1H1M YULIANA Infusion Ibuprofen 600 mg 09/10/25 23:27 09/10/25 23:58 Ibuprofen 600 Mg Tablet PO 09/10/25 23:28 600 mg ONCE ONE Administration Iohexol 85 ml 09/08/25 22:07 09/08/25 22:09 Iohexol 350 Mg/Ml 100 Ml Infus..Btl IV 09/08/25 22:08 85 ml ONCE ONE Administration Ketamine HCl 99.1 mg 09/09/25 04:52 09/09/25 05:01 Ketamine Hcl/Ns 50 Mg/5 Ml Syringe 1 mg/kg (99.1 mg) 09/09/25 04:53 99.1 mg IVPUSH Administration ONCE ONE Lidocaine HCl 1 appl 09/10/25 23:27 09/10/25 23:57 Lidocaine 4 % Cream Kit TOPICAL 09/10/25 23:28 1 appl ONCE ONE Administration Protocol Lidocaine/Epinephrine 20 ml 09/10/25 23:27 09/10/25 23:59 Lidocaine Hcl 1%/Epi 1:100,000 20 Ml Vial INFILTRATI 09/10/25 23:28 20 ml ONCE ONE Administration Lorazepam 1 mg 09/10/25 12:09 09/10/25 13:18 Lorazepam 1 Mg Tablet PO 09/10/25 12:10 1 mg ONCE ONE Administration Lorazepam 1 mg 09/11/25 11:22 09/11/25 11:30 Lorazepam 1 Mg Tablet PO 09/11/25 11:23 1 mg ONCE ONE Administration Metoclopramide HCl 5 mg 09/08/25 20:07 09/08/25 20:13 Metoclopramide Hcl 10 Mg/2 Ml Vial IV 09/08/25 20:08 5 mg ONCE ONE Administration Metoclopramide HCl 10 mg 09/08/25 22:04 09/08/25 22:25 Metoclopramide Hcl 10 Mg/2 Ml Vial IVPUSH 09/08/25 22:05 10 mg ONCE ONE Administration Midazolam HCl 5 mg 09/08/25 18:38 09/08/25 18:45 Midazolam Hcl 5 Mg/Ml Vial IVPUSH 09/08/25 18:39 5 mg ONCE ONE Administration Midazolam HCl 4 mg 09/08/25 19:41 09/08/25 19:43 Midazolam Hcl 2 Mg/2 Ml Vial IVPUSH 09/08/25 19:42 4 mg ONCE ONE Administration Morphine Sulfate 15 mg 09/10/25 23:27 09/10/25 23:57 Morphine Sulfate Immed Release 15 Mg Tablet PO 09/10/25 23:28 15 mg ONCE ONE Administration Ondansetron HCl 4 mg 09/08/25 19:12 09/08/25 19:24 Ondansetron Hcl 4 Mg/2 Ml Vial IVPUSH 09/08/25 19:13 4 mg ONCE ONE Administration Ondansetron HCl 4 mg 09/08/25 20:57 09/08/25 21:12 Ondansetron Hcl 4 Mg/2 Ml Vial IVPUSH 09/08/25 20:58 4 mg ONCE ONE Administration Trimethoprim/Sulfamethoxazole 1 tab 09/10/25 23:27 09/10/25 23:58 Sulfamethox/Trimeth 800/160 Tablet PO 09/10/25 23:28 1 tab ONCE ONE Administration Procedures Abscess I/D Site: other (right inferior buttock) Side (if applicable): right Local Anesthetic: lidocaine 1% and with epi Amount of anesthesia used (mL): 8 Technique: incised with blade Amount of fluid expressed (mL): 8 Sent for culture/gram staining?: Yes Irrigation: Yes Packing used?: none and iodoform Medical Decision Making Medical Decision Making MDM Narrative: 34-year-old female to male transgender history of ostomy presented to ER today for evaluation of agitation requiring 400 mg IM of ketamine on scene. No other sedation medicine was given to the patient. According to 1st responders the patient may suicide ideation was very agitated high threat of violence. A decision was made to sedate the patient. Upon arrival of the patient. Patient is sedated. We will out to patient to metabolize at this time end-tidal will be applied to the patient. Basic lab work will be obtained on patient. IV fluid be provided the patient as well. Patient does have signs of leukocytosis 17.8, likely reactive to his agitation, potassium 3.2 IV potassium will be repleted. , patient's CT abdomen and pelvis did not show any signs of acute finding. CT head is negative. He is still complaining of some nausea. IV Zofran IV Reglan given to the patient'. Care team stated that patient is too sedated to be interviewed at this time. They will plan to approach the patient's tomorrow morning. Patient will be held in the ER here. Patient is medically clear at this time. Pending care team evaluation of the patient. Patient is reportedly made suicide ideation on scene. Differential Diagnosis Differential Diagnoses: The differential diagnosis associated with the presentation includes Altered mentation, agitation, suicide ideation Lab Data MDM Lab Attestation statement: I reviewed the patient's lab results. 09/08/25 17:43 09/08/25 17:43 Labs: Lab Results 09/08/25 09/08/25 09/08/25 Range/Units 17:43 17:45 17:51 WBC 17.8 H (4.8-10.8) X10*3/uL RBC 4.66 (4.20-5.50) X10*6/uL Hgb 12.4 (12.0-16.0) g/dl Hct 38.6 (37.0-47.0) % MCV 82.8 (80.0-98.0) fL MCH 26.6 L (27.0-33.0) pg MCHC 32.1 (31.0-35.0) g/dl RDW 13.9 (11.0-16.0) % Plt Count 333 (160-400) X10*3/uL MPV 9.9 (9.4-12.3) fL Immature Gran % (Auto) 0.3 (0.0-0.4) % Neut % (Auto) 67.9 (45-73) % Lymph % (Auto) 23.6 (20-40) % Barton % (Auto) 6.5 (2-11) % Eos % (Auto) 1.4 (0-4) % Baso % (Auto) 0.3 (0-2) % Lymph # (Auto) 4.2 (1.2-4.9) X10*3/uL Barton # (Auto) 1.2 (0.1-1.2) X10*3/uL Eos # (Auto) 0.3 (0.0-0.4) X10*3/uL Baso # (Auto) 0.1 (0.0-0.2) X10*3/uL Abs Immat Gran (auto) 0.06 H (0.00-0.03) X10*3/uL Absolute Neuts (auto) 12.1 H (2.0-8.3) x10*3/uL Absolute Nucleated RBC 0.000 (0.0-0.012) X10*3/uL Nucleated RBC % (auto) 0.0 (0.0-0.2) /100WBC Hold Purple Top SEE NOTE VBG pH 7.36 (7.32-7.43) VBG pCO2 26 mmHg VBG pO2 124 mmHg VBG HCO3 15 L (22-26) mmol/L VBG O2 Saturation 99.0 % VBG Base Excess -8.5 mmol/L Sodium 138 (135-145) mmol/L Potassium 3.2 L (3.3-5.1) mmol/L Chloride 108 (96-108) mmol/L Carbon Dioxide 15 L (22-29) mmol/L Anion Gap 18 (12-20) BUN 12 (9-16) mg/dL Creatinine 0.88 (0.5-1.4) mg/dL Estim Creat Clear Calc 110.8 Estimated GFR > 60 POC Glucose 106 (60-115) mg/dL Random Glucose 118 H (60-115) mg/dL Calcium 9.4 (8.4-10.2) mg/dL Beta HCG, Quant < 2 mIU/mL Salicylates < 5.0 L (15-30) mg/dL Urine Opiates Screen (Not Detect) Ur Buprenorphine Scrn (Not Detect) ng/mL Ur Oxycodone Screen (Not Detect) ng/mL Urine Methadone Screen (Not Detect) ng/mL Urine Fentanyl Screen (Not Detect) Acetaminophen < 3 (<30) mcg/mL Ur Barbiturates Screen (Not Detect) Ur Phencyclidine Scrn (Not Detect) Ur Amphetamines Screen (Not Detect) U Benzodiazepines Scrn (Not Detect) Urine Cocaine Screen (Not Detect) U Marijuana (THC) Screen (Not Detect) Ethyl Alcohol < 10 mg/dL Influenza Type A (PCR) (Negative) Influenza Type B (PCR) (Negative) RSV RNA Qual (PCR) (Negative) SARS-CoV-2 RNA (RT-PCR) (Negative) 09/08/25 09/08/25 Range/Units 18:02 22:24 WBC (4.8-10.8) X10*3/uL RBC (4.20-5.50) X10*6/uL Hgb (12.0-16.0) g/dl Hct (37.0-47.0) % MCV (80.0-98.0) fL MCH (27.0-33.0) pg MCHC (31.0-35.0) g/dl RDW (11.0-16.0) % Plt Count (160-400) X10*3/uL MPV (9.4-12.3) fL Immature Gran % (Auto) (0.0-0.4) % Neut % (Auto) (45-73) % Lymph % (Auto) (20-40) % Barton % (Auto) (2-11) % Eos % (Auto) (0-4) % Baso % (Auto) (0-2) % Lymph # (Auto) (1.2-4.9) X10*3/uL Barton # (Auto) (0.1-1.2) X10*3/uL Eos # (Auto) (0.0-0.4) X10*3/uL Baso # (Auto) (0.0-0.2) X10*3/uL Abs Immat Gran (auto) (0.00-0.03) X10*3/uL Absolute Neuts (auto) (2.0-8.3) x10*3/uL Absolute Nucleated RBC (0.0-0.012) X10*3/uL Nucleated RBC % (auto) (0.0-0.2) /100WBC Hold Purple Top VBG pH (7.32-7.43) VBG pCO2 mmHg VBG pO2 mmHg VBG HCO3 (22-26) mmol/L VBG O2 Saturation % VBG Base Excess mmol/L Sodium (135-145) mmol/L Potassium (3.3-5.1) mmol/L Chloride (96-108) mmol/L Carbon Dioxide (22-29) mmol/L Anion Gap (12-20) BUN (9-16) mg/dL Creatinine (0.5-1.4) mg/dL Estim Creat Clear Calc Estimated GFR POC Glucose (60-115) mg/dL Random Glucose (60-115) mg/dL Calcium (8.4-10.2) mg/dL Beta HCG, Quant mIU/mL Salicylates (15-30) mg/dL Urine Opiates Screen Not Detected (Not Detect) Ur Buprenorphine Scrn Not Detected (Not Detect) ng/mL Ur Oxycodone Screen Not Detected (Not Detect) ng/mL Urine Methadone Screen Not Detected (Not Detect) ng/mL Urine Fentanyl Screen Not Detected (Not Detect) Acetaminophen (<30) mcg/mL Ur Barbiturates Screen Not Detected (Not Detect) Ur Phencyclidine Scrn Not Detected (Not Detect) Ur Amphetamines Screen Not Detected (Not Detect) U Benzodiazepines Scrn POSITIVE H (Not Detect) Urine Cocaine Screen Not Detected (Not Detect) U Marijuana (THC) Screen POSITIVE H (Not Detect) Ethyl Alcohol mg/dL Influenza Type A (PCR) NEGATIVE (Negative) Influenza Type B (PCR) NEGATIVE (Negative) RSV RNA Qual (PCR) NEGATIVE (Negative) SARS-CoV-2 RNA (RT-PCR) NEGATIVE (Negative) Independent Interpretation I performed an independent interpretation of an: CT Scan Radiology Impression Discussion of test interpretation with radiology: I have reviewed the radiologist's reading. Discharge Plan Discharge Clinical Impression: Suicidal ideation, Agitation, Abscess Patient Disposition: Xfer Other Transfer Details: Respite Instructions: Depression (ED), Incision and Drainage (ED) Additional Instructions: Your packing needs come out tomorrow You can shower this Return for any worsening symptoms or concerns Finish all antibiotics Rest and stay hydrated You were seen in our Emergency Department today for treatment of a behavioral health issue. It is important after your visit that you follow up with either your behavioral health provider or a primary care doctor within 7 days.? If you have trouble finding a therapist you can reach out to [address] [phone] The National Suicide and Crisis Lifeline can be reached 7 days a week 24 hours a day.? Call 988 to speak with someone.? Return for any worsening symptoms or concerns such as thoughts of self harm or harm to others. Please call 911 if you feel your mental health is worsening.? Prescriptions: New cephalexin 500 mg capsule 500 mg PO QID 7 Days Qty: 28 0RF sulfamethoxazole-trimethoprim [Bactrim DS] 800-160 mg tablet 1 tab PO BID Qty: 12 0RF No Action hydroxyzine HCl 25 mg Tablet 25 - 50 mg PO TID PRN (Reason: Anxiety) Interventions: [place]-Suicide Risk Severity Scale Last Done: 09/10/25 21:50 Print Language: Latvian
[2025-09-08 17:42] VITALS: BP 135/86; BP 138/85; PULSE 79; PULSE 92; RESP 18; TEMP 37.1; O2SAT 88; BMI 33.2
[2025-09-08 17:50] LABS: MANUAL DIFF FLAG NO
[2025-09-08 17:54] LABS: VBG HCO3 15 mmol/L (22-26); VBG O2 % Saturation 99.0 %
[2025-09-08 17:54] LABS: Venous Blood Gas Refer to POC result
[2025-09-08 17:55] LABS: Hematocrit 38.6 % (37.0-47.0); Hemoglobin 12.4 g/dl (12.0-16.0); Imm Gran Abs Auto 0.06 X10*3/uL (0.00-0.03); Imm Gran Pct Auto 0.3 % (0.0-0.4); Lymphocytes Absolute Auto 4.2 X10*3/uL (1.2-4.9); Mean Corpuscular HGB Conc 32.1 g/dl (31.0-35.0); Mean Corpuscular Hemoglobin 26.6 pg (27.0-33.0); Mean Corpuscular Volume 82.8 fL (80.0-98.0); NRBC Abs Auto 0.000 X10*3/uL (0.0-0.012); NRBC Pct Auto 0.0 /100WBC (0.0-0.2); Platelet Count 333 X10*3/uL (160-400); Red Blood Count 4.66 X10*6/uL (4.20-5.50); White Blood Count 17.8 X10*3/uL (4.8-10.8)
[2025-09-08] MEDS: Lactated Ringers 1,000 ML 999 ML IV ×2 (17:57→19:43)
[2025-09-08 17:58] VITALS: BP 137/90; PULSE 100; RESP 14; O2SAT 99
[2025-09-08 18:07] LABS: Glucose, Whole Blood 106 mg/dL (60-115)
[2025-09-08 18:15] LABS: Acetaminophen LAB < 3 mcg/mL (<30); Anion Gap 18 (12-20); Blood Urea Nitrogen 12 mg/dL (9-16); Calcium 9.4 mg/dL (8.4-10.2); Carbon Dioxide 15 mmol/L (22-29); Chloride 108 mmol/L (96-108); Creatinine Clr Calc Pharmacy 110.8; Estimated Glomerular Filt Rate > 60; Potassium 3.2 mmol/L (3.3-5.1); Salicylate < 5.0 mg/dL (15-30); Sodium 138 mmol/L (135-145)
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
--- OUTSIDE RECORDS SUMMARY | 2025-09-08 18:40 | XMS_ITS | Clinical Summary ---
Author Organization [facility] Address [address] [facility] [address] [place] [phone] Phone Care Team Providers Care Cycle Manager Name Role Phone Moises Wiseman MD Unavailable [phone] Unknown, Unknown MD Primary Care Provider [...] EST) HCV RNA PCR see comment IU/mL [facility] Comment: Not Detected (NOTE)Assay Range: 15-100,000,000 IU/ml In rare instances, there might be a 1.0 - 1.5 log increase measured viral load observed in individuals with genotype 3a and 4. Please refer any questions to the Molecular Diagnostics Lab at extension [phone]. This is a quantitative assay utilizing real-time [...] LAB BLOOD BKR ORDERABL ES Final Result [facility] [address] [place] [address] from Last 3 Months or Most Recently Relevant to Health Maintenance Insurance MEDICARE REPLACEMENT MEDICARE REPLACEMENT MEDICARE REPLACEMENT CARE MEDICARE REPLACEMENT CARE MEDICARE REPLACEMENT MEDICARE REPLACEMENT CARE MEDICARE REPLACEMENT MEDICARE REPLACEMENT Care Teams Cycle Manager Relationship Specialty Start Date End Date Unknown, Unknown, [address] [place] [address], [address] [place] [address] PCP - General 05/01/20 Moises Wiseman MD [address] [place] [address], [address] [place] [address] Historical LMR Provider 07/04/17 Additional Source Comments The information contained in this document represents components of the legal health record. It is not the complete legal health record.[facility]
--- OUTSIDE RECORDS SUMMARY | 2025-09-08 18:40 | XMS_ITS | Encounter Summary ---
Author Organization [employer] Address [address] 7[address] [place] [address] Care Team Providers Care Clothing Cutter Name Role Phone Maida Scott NP Primary Care Provider [phone] Reason for Visit * Reason Onset Date Comments provider out 09/06/2025 Called pt to r/s appointment provider out . No answer unable to leave voicemail . If pt calls r/s follow up appointment with pcp. Encounter Details Date Type Department Care Team ([facility] st Contact Info) Description 09/06/2025 Telephone [facility] [address] [place] [address] Maida Scott NP [address] [place] [address] provider out (Called pt to r/s appointment [...] documented as of this encounter Care Teams Clothing Cutter Relationship Specialty Start Date End Date Maida Scott NP [address] [place] [address] PCP - General Family Medicine 08/26/24 documented as of this encounter
--- OUTSIDE RECORDS SUMMARY | 2025-09-08 18:40 | XMS_ITS | Encounter Summary ---
Author Organization [employer] Address [address] [place] [address] Care Team Providers Care Keyboard Specialist Name Role Phone Maida Scott NP Primary Care Provider [phone] Reason for Visit * Reason Onset Date Comments Nurse Triage 02/15/2025 Encounter Details Date Type Department Care Team ([facility] st Contact Info) Description 02/15/2025 Telephone [facility] MED[facility]INE [address] [place] [address] Maida Scott NP [address] [place] [address] Nurse Triage Social History Tobacco Use Types [...] acuity questions The caller accepted this outcome. [phone] documented in this encounter Plan of Treatment Not on file documented as of this encounter Visit Diagnoses Not on filedocumented in this encounter Additional Health Concerns Assessment Noted Time PHQ-9 Depression Total Score: 4 08/26/20 24 10:41 AM EST documented as of this encounter Care Teams Keyboard Specialist Relationship Specialty Start Date End Date Maida Scott NP [address] [place] [address] PCP - General Family Medicine 08/26/24 documented as of this encounter
--- OUTSIDE RECORDS SUMMARY | 2025-09-08 18:40 | XMS_ITS | Encounter Summary ---
Author Organization [employer] Address [address] [place] [address] Care Team Providers Care Claims Adjustor Name Role Phone Maida Scott NP Primary Care Provider [phone] Reason for Visit * Reason Comments Med Change Request Encounter Details Date Type Department Care Team ([facility] Contact Info) Description 03/21/2025 Refill [facility] [address] [place] [address] Aniya Lincoln NP [address] [place] [address] Moderate persistent asthma with acute exacerbation Social [...] documented as of this encounter Care Teams Claims Adjustor Relationship Specialty Start Date End Date Maida Scott NP [address] [place] [address] PCP - General Family Medicine 08/26/24 documented as of this encounter
--- OUTSIDE RECORDS SUMMARY | 2025-09-08 18:40 | XMS_ITS | Clinical Summary ---
Author Organization [facility] Address [address] [place] [address] Care Team Providers Care Professor Of History Name Role Phone Unavailable Primary Care Provider [...]
--- OUTSIDE RECORDS SUMMARY | 2025-09-08 18:40 | XMS_ITS | Encounter Summary ---
Author Organization [employer] Address [address] [place] [address] Care Team Providers Care Smt Operator Name Role Phone Maida Scott NP Primary Care Provider [phone] Encounter Details Date Type Department Care Team (Late st Contact Info) Description 09/07/2025 Orders Only GENERIC EXTERNAL DATA DEPARTMENT Provider, Generic External Data Social History Tobacco Use Types Packs/Day Years [...] on file documented as of this encounter Procedures Procedure Name Priority Date/Time Associated Diagnosis Comments CT CERVICAL SPINE WO CONTRAST Routine 09/07/2025 2:[address] HEAD WO CONTRAST Routine 09/07/2025 2 :37 PM EST HCG, TOTAL, QN Routine 09/07/2025 12:47 PM EST documented in this encounter Results * CT Cervical Spine w/o Contrast (09/07/2025 2:38 PM EST) Anatomical Region Laterality Modality Spine, C-spine Computed Tomogra phy 09/07/2025 2:38 PM EST Narrative 09/07/2025 2:40 PM EST [place] [address] CT Scan Report Signed Patient: Emilia Trujillo MR#: [id number] : 1990 Acct:[id number] Age/Sex: 34 / F ADM Date: 09/07/25 Loc: HO.ED Attending Dr: Ordering Physician: Payal Wilks Date of Service: 09/07/25 Procedure(s): CT cervical spine wo IV con Accession Number(s): [id number] cc: Maida Scott; Payal Wilks Report Number: [id number]: Total DLP = 1086.00 mGy-cm Reason for [...] 09/07/25 1439 DD/ 1438 TD/TT: 09/07/25 1438 Shot Tube Machine Tender: Procedure Note Donotuseinterpreter, Image - 09/07/[address] [place] [address] [address] Scan Report Signed Patient: Emilia Trujillo#: [id number] : 1990Acct:[id number] Age/Sex: 34 / FADM Date: 09/07/25 Loc: HO.ED Attending Dr: Ordering Physician: Payal Wilks Date of Service: 09/07/25 Procedure(s): CT cervical spine wo IV con Accession Number(s): [id number] cc: Maida Scott; Payal Wilks Report Number: [id number]: Total DLP = 1086.00 mGy-cm Reason for [...] OV> 09/07/25 1439 DD/ 1438 TD/TT: 09/07/258 Shot Tube Machine Tender: us [facility] External Provider IMG CT PROCEDURES Final Result * CT Head w/o Contrast (09/07/2025 2:37 PM EST) Anatomical Region Laterality Modality Head, Neck Computed Tomogra phy 09/07/2025 2:37 PM EST Narrative 09/07/2025 2:38 PM EST [address] [address] [address] Scan Report Signed Patient: Emilia Trujillo MR#: [id number] : 1990 Acct:[id number] Age/Sex: 34 / F ADM Date: 09/07/25 Loc: HO.ED Attending Dr: Ordering Physician: Payal Wilks Date of Service: 09/07/25 Procedure(s): CT head/brain wo IV con Accession Number(s): [id number] cc: Maida Scott; Payal Wilks Report Number: [id number]: Total DLP = 0.00 mGy-cm Reason for [...] in OV> 09/07/251437 DD/ 36 TD/TT: 09/07/251436 Shot Tube Machine Tender: Procedure Note Donotuseinterpreter, Image - 09/07/[address] [address] [address] Scan Report Signed Patient: Yunior Trujillo#: [id number] : 1990Acct:[id number] Age/Sex: 34 / FADM Date: 09/07/25 Loc: HO.ED Attending Dr: Ordering Physician: Payal Wilks Date of Service: 09/07/25 Procedure(s): CT head/brain wo IV con Accession Number(s): [id number] cc: Maida Scott; Payal Wilks Report Number: [id number]: Total DLP = 0.00 mGy-cm Reason for [...] in OV> 09/07/251437 DD/ 36 TD/TT: 09/07/251436 Shot Tube Machine Tender: [facility] External Provider IMG CT PROCEDURES Final Result * hCG, Total, Quantitative (09/07/2025 12:47 PM EST) HCG Quantitative <2 mIU/mL [facility] Comment:Weeks post LMP Appro ximate hCG(Last Menstrual Period) Range (mIU/ml)3 - 4 weeks 9 - 1304 - 5 weeks 75 - 2,6005 - 6 weeks 850 - 20,8006 - 7 weeks 4000 - 100,2007 - 12 weeks 11,500 - 289,97739 - 16 weeks 18,300 - 137,61617 - 29 weeks (2nd trimester) 1,400 - 53,30862 - 41 weeks (3rd trimester) 940 - 60,000The Hicks B- hCG assay is used for the early detection ofpregnancy; it cannot be used to diagnose any conditionunrelated to . If a B-hCG level is not supportedby the clinical evidence, results should be confirmed by analternative method (qualitative urine hCG, for example). 09/07/2025 12:4 7 PM EST 09/07/2025 12:51 PM EST us Generic External Data Provider LAB BLOOD ORDERAB LES Final Result [facility] [address] [place] [phone] documented in this encounter Visit Diagnoses Not on filedocumented in this encounter Additional Health Concerns Assessment Noted Time PHQ-9 Depression Total Score: 27 025 11:18 AM EST documented as of this encounter Care Teams Smt Operator Relationship Specialty Start Date End Date Maida Scott NP [address] [place] [phone] PCP - General Family Medicine 08/26/24 documented as of this encounter
--- OUTSIDE RECORDS SUMMARY | 2025-09-08 18:40 | XMS_ITS | Encounter Summary ---
Author Organization [employer] Address [address] [facility] [address] [place] [address] Care Team Providers Care Home Improvement Advisor Name Role Phone Maida Scott NP Primary Care Provider [phone] Reason for Visit * Reason Onset Date Comments chartprep 09/05/2025 Encounter Details Date Type Department Care Team ([facility] Contact Info) Description 09/05/2025 Telephone [facility] MEDICINE [address] [place] [address] Maida Scott NP [address] [place] [address] chartprep Social History Tobacco Use Types Packs/Day [...] documented as of this encounter Care Teams Home Improvement Advisor Relationship Specialty Start Date End Date Maida Scott NP [address] [place] [address] PCP - General Family Medicine 08/26/24 documented as of this encounter
--- OUTSIDE RECORDS SUMMARY | 2025-09-08 18:40 | XMS_ITS | Encounter Summary ---
Author Organization [employer] Address [address] [place] [address] Care Team Providers Care Continuum Of Care Manager Name Role Phone Maida Scott NP Primary Care Provider [phone] Reason for Visit * Reason Onset Date Comments Nurse Triage 09/27/2024 Encounter Details Date Type Department Care Team ([facility] st Contact Info) Description 09/27/2024 Telephone [facility] [address] [place] [address] Maida Scott NP [address] [place] [address] Nurse Triage Social History Tobacco Use Types [...] caller accepted this outcome. Contact pt at [phone] documented in this encounter Plan of Treatment Not on file documented as of this encounter Visit Diagnoses Not on filedocumented in this encounter Additional Health Concerns Assessment Noted Time PHQ-9 Depression Total Score: 4 08/26/20 24 10:41 AM EST documented as of this encounter Care Teams Continuum Of Care Manager Relationship Specialty Start Date End Date Maida Scott NP [address] [place] [phone] PCP - General Family Medicine 08/26/24 documented as of this encounter
--- NOTE | 2025-09-08 18:45 | MHC.CARE ---
CARE team was contacted by [facility] co-response clinician in [place] regarding the pt who was being sent to the ER on a [address] by [place] [employer] officers on scene after the pt indicated that he would become suicidal if he was forced to leave his mother's house. Clinician reported that the initial call was placed by the pt's mother who reported that there had been an argument and the pt made suicidal statements, then the pt's mother indicated that she wanted the pt removed from her home. Clinician explained that the pt just went through a break up from his girlfriend of 7 years and had been staying with his mother for the past 5 days. Clinician reported that their recommendation/disposition was for [facility], which the pt declined, and felt that the police sending the pt to the hospital wasn't necessary and that the pt hadn't been agitated until being advised that they had no choice. CARE team stopped by the pt's room to advise the pt's nurse of this information and sent a tiger message to the attending physician as well.
[2025-09-08] MEDS: Potassium Chloride/H20 10 MEQ/100 ML PIGGYBACK 100 MEQ IV ×2 (18:48→20:13)
[2025-09-08 18:54] VITALS: BP 115/57; PULSE 90; RESP 18; O2SAT 92
--- NOTE | 2025-09-08 18:55 | PC.NURSE ---
late entry. aprox 30 min ago pt began to wake, was shouting and attempting to climb out of bed. unable to redirect. security to bedside and pt was sedated again.
[2025-09-08 18:56] LABS: Resp Syncy Virus RNA Qual PCR NEGATIVE (Negative); SARS COV2 PCR INHOUSE NEGATIVE (Negative)
[2025-09-08 19:34] VITALS: BP 93/45; PULSE 78; RESP 20; O2SAT 100
[2025-09-08 19:44] VITALS: BP 119/94; PULSE 83; RESP 20; O2SAT 99
[2025-09-08 21:33] VITALS: BP 104/60; PULSE 56; RESP 18; O2SAT 96
[2025-09-08] MEDS: iohexoL 350 MG/ML 100 ML INFUS..BTL 85 ML IV (22:09)
[2025-09-08 23:02] LABS: Cannabinoid Screen Urine POSITIVE (Not Detect)
[2025-09-09 00:50] VITALS: BP 106/59; PULSE 14; RESP 52; TEMP 36.7; O2SAT 96
--- NOTE | 2025-09-09 00:50 | PC.NURSE ---
assumed care of pt, pt denies pain at ti time, resting in stretcher, 1:1 sitter at bedside. respirations even and unlabored.
[2025-09-09] MEDS: Ketamine HCl/NS 50 MG/5 ML SYRINGE 99.1 MG IVPUSH (05:01)
--- NOTE | 2025-09-09 05:15 | PC.NURSE ---
pt asked to use bathroom, agreed to use bedside commode due to drowsiness, within minutes pt began asking fo0r his cell phone provider Leon went in to speak with pt, pt became aggressive, punched the suction canister off the wall, unable to calm pt, pt became increasingly aggressive and agitated, security called, pt placed in 4 point Velcro restraints and was medicated per MAR. no injuries sustained by pt or staff. 1:[address]
--- NOTE | 2025-09-09 06:19 | PC.NURSE ---
restraints removed at 0600, pt calm and cooperative. assisted pt to bedside commode, assisted pt in emptying his ostomy bag, pt tolerated well.
[2025-09-09 06:20] VITALS: BP 109/88; PULSE 66; RESP 18; TEMP 36.8; O2SAT 99
[2025-09-09 07:58] VITALS: PULSE 56; RESP 16
--- NOTE | 2025-09-09 11:28 | PC.NURSE ---
report given to pod RN for pt transfer to pod for further dispo and evaluation. Pt calm and cooperative for transfer.
--- NOTE | 2025-09-09 11:50 | PC.NURSE ---
Pt rec'd into pod. given supplies for shower and clean clothes. pt oriented to unit, encouraged to perform ADLs.
--- NOTE | 2025-09-09 15:22 | MHC.CARE ---
Addendum entered by DAMARIS Fuentes 09/09/25 15:33: [facility] reports that they will call once assessment reviewed. Original Note: [facility] has beds, and they had called inquiring about patient earlier in the day. Following visit with his older sister Eden, he is agreeable to an [facility] bed search. Faxed to [facility]
[2025-09-09 21:09] VITALS: BP 119/68; PULSE 89; RESP 18; TEMP 36.4; O2SAT 100
[2025-09-09 22:43] VITALS: RESP 16
[2025-09-10 01:08] VITALS: BP 120/73; PULSE 72; RESP 18; TEMP 36.2; O2SAT 99
--- NOTE | 2025-09-10 10:22 | MHC.CARE ---
confirmed with [facility] that referral was received and activated. currently under review
--- NOTE | 2025-09-10 10:24 | PC.NURSE ---
Belongings moved from [facility] shelf #3 to [facility] Locker #6. Patient gave his house chang to his mother. Mother brought colostomy supplies, bag to be changed with this RN supervising.
[2025-09-10] MEDS: Erythromycin Base 0.5% Oph Oin 1 GM TUBE 1 CM EYE-RIGHT ×3 (11:07→23:22)
--- NOTE | 2025-09-10 11:21 | PC.NURSE ---
Erythromycin ointment applied to right eye, as ordered by Dr. Bruno. Mild swelling noted to inner canthus of right eye. Care ongoing by this RN.
--- NOTE | 2025-09-10 12:29 | HE.PHANOTE ---
Addendum entered by Pastor NunesD 09/11/25 10:44: Spoke with [facility] who confirmed they filled Hydroxyzine 25mg #90 with instructions to take 1 - 2 tablets TID prn Anxiety Original Note: RE: MED REC Patient said they takes hydroxyzine 1-2 tabs tid prn anxiety but doesn't know the dose. They picked up the medication about a week ago at [facility] and last dose was 4 days ago. Will have morning med rec team call [facility] on thursday when pharmacy opens to confirm dose.
[2025-09-10 15:30] VITALS: BP 111/62; PULSE 81; RESP 18; TEMP 36.8; O2SAT 100
--- NOTE | 2025-09-10 21:45 | PC.NURSE ---
patient reports colostomy bag is leaking, colostomy bag noted to be intact but still is leaking around stoma and onto skin. colostomy back removed, some redness and excoriation noted to skin directly distal to stoma. Patient provided their own colostomy care with this RNs supervision, patient cleansed area, skin prep, and new colostomy bag applied utilizing new rings that patients mother brought in. At this time patient also reported that he has a new abcess under left buttock, provider made aware.
[2025-09-10 21:55] VITALS: BP 122/75; PULSE 60; RESP 18; TEMP 36.1; O2SAT 99
[2025-09-10] MEDS: Morphine Sulfate Immed Release 15 MG TABLET PO (23:57)
[2025-09-10] MEDS: Lidocaine 4 % Cream KIT 1 APPL TOPICAL (23:57)
[2025-09-10] MEDS: Sulfamethox/Trimeth 800/160 TABLET 1 TAB PO (23:58)
[2025-09-10] MEDS: Lidocaine HCl 1%/Epi 1:100,000 20 ML VIAL INFILTRATI (23:59)
--- NOTE | 2025-09-11 00:17 | PC.NURSE ---
Patient premedicated and topical lidocaine applied prior to I&D of abcess under left buttock. Patient has remained calm and cooperative during this RN's shift. Denies SI/HI, patient reports that he just feels frustrated, also earlier patient calmly stated that he felt like punching the wall r/t to frustration but that he recognized that would not be a good choice and wont do it.
[2025-09-11 01:23] VITALS: BP 106/67; PULSE 78; RESP 16; TEMP 36.6; O2SAT 98
--- NOTE | 2025-09-11 01:24 | PC.NURSE ---
I&D to left buttock abcess completed by provider. packing and dressing in place. pt tolerated procedure well. remains calm and cooperative
[2025-09-11] MEDS: Erythromycin Base 0.5% Oph Oin 1 GM TUBE 1 CM EYE-RIGHT (05:02)
--- NOTE | 2025-09-11 11:03 | MHC.CARE ---
Pt has been accepted to [facility] for 4:30pm.
[2025-09-11] MEDS: Sulfamethox/Trimeth 800/160 TABLET 1 TAB PO (11:31)
[2025-09-11 13:12] VITALS: BP 110/71; PULSE 66; RESP 16; TEMP 36.2; O2SAT 100
== END 2025-09-11 16:17 | disposition other institution (70) ==
PROVIDERS: Student in an Organized Health Care Education/Training Program; Emergency Provider Emergency Medicine
DX: R45.851 Suicidal ideations (principal); R45.1 Restlessness and agitation; L02.31 Cutaneous abscess of buttock; Z03.818 Encounter for observation for suspected exposure to other biological agents ruled out; R41.82 Altered mental status, unspecified; L73.2 Hidradenitis suppurativa; R00.1 Bradycardia, unspecified; R11.10 Vomiting, unspecified; F64.0 Transsexualism; Z78.1 Physical restraint status
CPT/HCPCS: 10060; 36415; 70450; 74177; 76857; 80048; 80143; 80179; 80307; 82803; 82947; 84702; 85025; 87070; 87147; 87205; 87637; 93005; 96361; 96372; 96374; 96375; 96376; 99285; J1200; J1630; J2004; J2250; J2405; J2765; J3480; J7120; Q9967; S9485

== ENCOUNTER → 2025-09-08 17:39 | Outpatient (BNV) | payer MEDICARE, MEDICAID, SELFPAY | PROVIDERS: Emergency Provider Emergency Medicine; Visit Provider Internal Medicine Cardiovascular Disease | DX: I49.9 Cardiac arrhythmia, unspecified (principal); R00.1 Bradycardia, unspecified | CPT/HCPCS: 93010 ==

== ENCOUNTER → 2025-09-08 19:39 | Outpatient (BNV) | payer MEDICARE, MEDICAID, SELFPAY | PROVIDERS: Emergency Provider Student in an Organized Health Care Education/Training Program; Visit Provider General Practice | DX: R11.10 Vomiting, unspecified (principal); R41.82 Altered mental status, unspecified | CPT/HCPCS: 70450; 74177 ==